=== PATIENT | female | born 1930 | race Caucasian/White ===

== ENCOUNTER 2017-08-06 05:59 | Inpatient (IN) | payer MEDICARE ==
[~2017-08-06] VITALS: Ht 160 cm; Wt 96.2 kg
--- NOTE | 2017-08-06 06:15 | NUR ---
BIB RA FOR SOB VIA GURNEY FROM [facility]. PT ARRIVED WITH O2 @ 4LPM VIA NC IN NO ACUTE DISTRESS. PT TRANSFERRED TO BED, TOLERATED WELL. PT PLACED ON MONITOR WITH V/S WNL. O2 SAT @ 88%. PT RESPIRATIONS EVEN AND UNLABORED. IV PLACED ON RIGHT HAND 20G THAT IS CLEAN DRY INTACT AND PATENT WITH SALINE LOCK. AWAITING MD SHAH. Addendum: 08/06/17 at 0623 by MICHELLE PT ARRIVED ON NON REBREATHER @ 12LPM AND NOT ON A N/C.
[2017-08-06 06:49] LABS: BASOPHILS # (AUTO) 0.1 /CMM (0.0-0.2); BASOPHILS % (AUTO) 0.5 % (0.0-2.0); EOSINOPHILS % (AUTO) 4.1 % (0.0-6.0); HEMATOCRIT 41 % (33-45); HEMOGLOBIN 13.5 g/dL (11.5-14.8); LYMPHOCYTES # (AUTO) 1.8 /CMM (0.8-4.8); LYMPHOCYTES % (AUTO) 11.8 % (20.0-44.0); MEAN CORPUSCULAR HGB CONC 33 g/dl (31.0-36.0); MEAN CORPUSCULAR VOLUME 89 fL (82-100); MONOCYTES # (AUTO) 1.1 /CMM (0.1-1.30); MONOCYTES % (AUTO) 7.2 % (2.0-12.0); NEUTROPHILS # (AUTO) 11.3 /CMM (1.8-8.9); NEUTROPHILS % (AUTO) 76.4 % (43.0-81.0); PLATELET COUNT (AUTO) 416 /CMM (150-450); RDW COEFFICIENT OF VARIATION 15.2 (11.5-15.0); RED BLOOD CELL COUNT(AUTO) 4.61 MIL/uL (4.0-5.2); WHITE BLOOD COUNT (AUTO) 14.8 K/uL (4.3-11.0)
--- NOTE | 2017-08-06 07:00 | NUR ---
XRAY AT BEDSIDE.
[2017-08-06 07:03] LABS: INR 0.98 (0.87-1.13)
[2017-08-06 07:10] LABS: CALCIUM, SERUM 9.2 mg/dL (8.5-10.1); CARBON DIOXIDE 23 mmol/L (21-32); CHLORIDE 107 mmol/L (98-107); CREATININE 1.4 mg/dL (0.6-1.3); GLUCOSE 137 mg/dL (74-106); POTASSIUM 4.1 mmol/L (3.5-5.1); SODIUM SERUM 141 mmol/L (136-145); TROPONIN I 0.649 ng/mL (0.00-0.056); UREA NITROGEN, BLOOD 25 mg/dL (7-18)
--- NOTE | 2017-08-06 07:14 | NUR ---
RECEIVED CRITICAL LAB VALUE TROPONIN 0.164. NOTIFIED MD, AWAITING ORDERS.
[2017-08-06 07:15] LABS: B-TYPE NATRIURETIC PEPTIDE 244 PG/ML (0-125)
[2017-08-06] MEDS ORDERED: ASPIRIN 325 MG TABLET PO ONE (08:00)
[2017-08-06] MEDS ORDERED: DILTIAZEM HCL 25 MG IV IV ONE (08:00)
[2017-08-06] MEDS ORDERED: ASPIRIN 325 MG TABLET ONE (08:01)
[2017-08-06] MEDS ORDERED: DILTIAZEM HCL 50 MG IV ONE (08:02)
[2017-08-06] MEDS ORDERED: TRAZ-182 PO (08:11)
[2017-08-06] MEDS ORDERED: HYDR-548 PO ×2 (08:11)
[2017-08-06] MEDS ORDERED: CITA40TA11 PO (08:11)
[2017-08-06] MEDS ORDERED: FENO160T PO (08:11)
[2017-08-06] MEDS ORDERED: SIMV20TA6 PO (08:11)
[2017-08-06] MEDS ORDERED: ASPI-1152 PO (08:11)
[2017-08-06] MEDS ORDERED: METF-440 PO (08:11)
--- NOTE | 2017-08-06 08:17 | NUR ---
CALLED [facility] FOR ADMISSION
--- NOTE | 2017-08-06 08:41 | NUR ---
ROOM 109
--- NOTE | 2017-08-06 08:52 | NUR ---
REPORT GIVEN TO MARIELA CORRALES FOR TELE 112.
[2017-08-06] MEDS ORDERED: MORPHINE SULFATE INJ 2 MG/ML DISP.SYRIN IV PRN ×3 (09:00→09:15)
[2017-08-06] MEDS ORDERED: NITROGLYCERIN PACKET 1 GM PACKET TD PRN ×2 (09:00→09:15)
[2017-08-06] MEDS ORDERED: DOCUSATE SODIUM 100 MG CAPSULE PO PRN ×2 (09:00→09:15)
[2017-08-06] MEDS ORDERED: ENOXAPARIN SODIUM 60 MG/0.6 ML DISP.SYRIN SQ SCH (09:00)
[2017-08-06] MEDS ORDERED: MAG HYDROX/AL HYDROX/SIMETH 30 ML UDC PO PRN ×2 (09:00→09:15)
[2017-08-06] MEDS ORDERED: NITROGLYCERIN 0.4 MG/TAB BOTTLE SL PRN ×2 (09:00→09:15)
--- NOTE | 2017-08-06 09:35 | NUR ---
RN NOTE RECEIVED REPORT FROM RENUKA BECK. RECEIVED PATIENT 87 YEAR OLD FEMALE BOUGHT IN TO THE HOSPITAL BY AMBULANCE FROM [facility] [employer] [facility]. PATIENT IS AWAKE ALERT AND ORIENTED X3, SHE IS ABLE TO MAKE THINGS KNOWN AND VERBALIZE NEEDS. ON O2 4L VIA NC BREATHING EVEN AND UNLABORED WITH NO DISTRESS NOTED, PATIENT IS SATURATING WELL. PATIENT DENIES ANY PAIN AT THIS TIME. ON ADMINISTRATIVE SERVICES SPECIALIST OF SINUS RHYTHM WITH 1ST DEGREE HR OF 90. WOUND PICTURES TAKEN AND DOCUMENTED IN CHART. BED LOW IN LOCKED POSITION. PLACED CALL LIGHT WITHIN REACH. WILL CONTINUE TO MONITOR CLOSELY.
[2017-08-06 10:13] VITALS: BP 102/72
[2017-08-06] MEDS: ENOXAPARIN SODIUM 30 MG/0.3 ML DISP.SYRIN SQ SCH (10:43)
[2017-08-06] MEDS ORDERED: AMIODARONE HCL 200 MG TABLET PO SCH (11:00)
[2017-08-06 12:03] LABS: ALANINE AMINOTRANSFERASE 21 U/L (12-78); ALBUMIN 3.4 g/dL (3.4-5.0); ALKALINE PHOSPHATASE 29 U/L (46-116); ASPARTATE AMINOTRANSFERASE 26 U/L (15-37); BILIRUBIN,TOTAL 0.3 mg/dL (0.2-1.0); CALCIUM, SERUM 9.5 mg/dL (8.5-10.1); CARBON DIOXIDE 23 mmol/L (21-32); CHLORIDE 108 mmol/L (98-107); CREATININE 1.3 mg/dL (0.6-1.3); GLUCOSE 112 mg/dL (74-106); MAGNESIUM 2.3 mg/dL (1.8-2.4); PHOSPHORUS 4.1 mg/dL (2.5-4.9); POTASSIUM 4.5 mmol/L (3.5-5.1); SODIUM SERUM 140 mmol/L (136-145); TOTAL PROTEIN, SERUM 7.1 g/dL (6.4-8.2); UREA NITROGEN, BLOOD 26 mg/dL (7-18)
[2017-08-06 12:09] LABS: CHOLESTEROL 173 mg/dL (<200); HDL CHOLESTEROL 48 mg/dL (40-60); LDL 105 mg/dL (0-99); THYROID STIMULATING HORMONE 0.431 uIU/mL (0.358-3.74); TRIGLYCERIDES 114 mg/dL (30-150)
[2017-08-06] MEDS: FENOFIBRATE NANOCRYS (145 MG) 145 MG TABLET PO SCH (12:29)
[2017-08-06] MEDS ORDERED: ASPIRIN EC 325 MG TABLET.DR PO ONE ×2 (13:00)
[2017-08-06 14:00] VITALS: BP 110/76
[2017-08-06] MEDS: MORPHINE SULFATE INJ 4 MG/ML DISP.SYRIN IV PRN ×2 (14:02→18:41)
[2017-08-06 16:00] VITALS: BP 131/60
[2017-08-06] MEDS: AMIODARONE HCL 200 MG TABLET PO SCH (16:47)
[2017-08-06 18:03] VITALS: BP 131/60
[2017-08-06] MEDS: METFORMIN 500 MG TABLET PO SCH (18:16)
--- NOTE | 2017-08-06 18:56 | NUR ---
RN NOTE PATIENT REMAINED STABLE THROUGHOUT SHIFT. NO ACUTE CHANGES NOTED DURING SHIFT. WILL ENDORSE TO NEXT SHIFT TO CONTINUE CONTINUITY OF CARE.
--- NOTE | 2017-08-06 19:30 | NUR ---
FILM DRYING MACHINE OPERATOR OPENING NOTES: RECEIVED PT IN BED AND IS LAYING DOWN IN BED AT THIS TIME. PT IS ON 5LPM VIA NC AND IS TOLERATING WELL. PT HAS IV AND IS S/L AT THIS TIME. 2 FAMILY MEMBERS AT BEDSIDE AT THIS TIME. PT IS A/OX3. NO S/S OF DISTRESS NOTED AT THIS TIME. CALL LIGHT WITHIN PT'S REACH. BED KEPT IN LOW, LOCKED POSITION, AND SIDE RAILS X 2UP. WILL CONTINUE TO MONITOR PT.
[2017-08-06 20:00] VITALS: BP 122/78
[2017-08-06] MEDS: IV NS 0.9% 1,000 ML IV PRN (20:27)
[2017-08-06 20:57] VITALS: BP 122/78
[2017-08-06] MEDS: ASPIRIN EC 81 MG TABLET.DR PO SCH (21:23)
[2017-08-06] MEDS: SIMVASTATIN 20 MG TABLET PO SCH (21:23)
[2017-08-06] MEDS: TRAZODONE 50 MG TABLET PO PRN (21:23)
--- NOTE | 2017-08-06 21:29 | NUR ---
SCREENING TECH NOTES: PER SON, TRACEY, TO ADMINISTER TRAZODONE. EXPLAINED TO PT AND SHE SAID THAT IS WHAT [facility] TAK[facility] AT THE [facility]. TRAZODONE 150MG WAS GIVEN PO. WILL CONTINUE TO MONITOR PT.
--- NOTE | 2017-08-06 22:03 | NUR ---
PATIENT SERVICE COORDINATOR NOTES: NOTIFIED AMBULANCE DRIVER PARAMEDIC LUNA WILHELM ABOUT D-DIMER 5.25 ; AMBULANCE DRIVER PARAMEDIC AWARE. NO ORDERS AT THIS TIME; INFORMED HER THAT PT IS NOT IN DISTRESS AT THIS TIME. PT IS ASLEEP AND IS ON NASAL CANNULA. 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 WILL CONTINUE TO MONITOR.
[2017-08-07] VITALS: BP 130/78
[2017-08-07 00:57] VITALS: BP 130/78
--- NOTE | 2017-08-07 01:12 | NUR ---
PUSHER RUNNER NOTES: NOTIFIED ELECTRIC LOCOMOTIVE CRANE OPERATOR LUNA WILHELM ABOUT RECENT TROPONIN RESULTS OF 1.216 ; ELECTRIC LOCOMOTIVE CRANE OPERATOR AWARE. NO NEW ORDERS
--- NOTE | 2017-08-07 01:35 | NUR ---
SPRING INTERNSHIP NOTES: CONSENT FOR CT PULM ANGIOGRAM OBTAINED AND PLACED IN CHART.
[2017-08-07 04:00] VITALS: BP 128/75
--- NOTE | 2017-08-07 06:09 | NUR ---
MANAGER RELATIONSHIP CLOSING NOTES: ALL NEEDS WERE ATTENDED AND ANTICIPATED FOR. PT IS ASLEEP AT THIS TIME. PT IS ON SEMI-FLORES'S POSITION AND RESTING COMFORTABLY. PT IS ON 4LPM VIA NC. PT ON SCD PUMPS WELL. BED ALARM ACTIVATED. CALL LIGHT WITHIN PT'S REACH. BED KEPT IN LOW, LOCKED POSITION, AND SIDE RAILS X 2UP. PT HAS IV ON R HAND AND IS BEING INFUSED WITH NS AT 50ML/HR. PT ON TELE BOX AND READING SHOWS SR WITH FIRST DEGREE AV BLOCK. WILL ENDORSE TO AM NURSE FOR DAMON.
[2017-08-07 06:51] LABS: BASOPHILS # (AUTO) 0.1 /CMM (0.0-0.2); BASOPHILS % (AUTO) 0.4 % (0.0-2.0); HEMATOCRIT 37 % (33-45); HEMOGLOBIN 12.5 g/dL (11.5-14.8); LYMPHOCYTES # (AUTO) 1.6 /CMM (0.8-4.8); LYMPHOCYTES % (AUTO) 11.5 % (20.0-44.0); MEAN CORPUSCULAR HGB CONC 33 g/dl (31.0-36.0); MEAN CORPUSCULAR VOLUME 89 fL (82-100); MONOCYTES # (AUTO) 1.1 /CMM (0.1-1.30); NEUTROPHILS # (AUTO) 10.8 /CMM (1.8-8.9); NEUTROPHILS % (AUTO) 78.1 % (43.0-81.0); PLATELET COUNT (AUTO) 357 /CMM (150-450); RDW COEFFICIENT OF VARIATION 15.1 (11.5-15.0); RED BLOOD CELL COUNT(AUTO) 4.21 MIL/uL (4.0-5.2); WHITE BLOOD COUNT (AUTO) 13.8 K/uL (4.3-11.0)
[2017-08-07 07:18] LABS: ALANINE AMINOTRANSFERASE 22 U/L (12-78); ALKALINE PHOSPHATASE 26 U/L (46-116); ASPARTATE AMINOTRANSFERASE 22 U/L (15-37); BILIRUBIN,TOTAL 0.4 mg/dL (0.2-1.0); CALCIUM, SERUM 8.9 mg/dL (8.5-10.1); CARBON DIOXIDE 23 mmol/L (21-32); CHLORIDE 107 mmol/L (98-107); GLUCOSE 124 mg/dL (74-106); MAGNESIUM 2.1 mg/dL (1.8-2.4); PHOSPHORUS 4.8 mg/dL (2.5-4.9); POTASSIUM 4.7 mmol/L (3.5-5.1); SODIUM SERUM 141 mmol/L (136-145); TOTAL PROTEIN, SERUM 6.5 g/dL (6.4-8.2); UREA NITROGEN, BLOOD 36 mg/dL (7-18)
[2017-08-07 07:30] LABS: TROPONIN I 0.758 ng/mL (0.00-0.056)
--- NOTE | 2017-08-07 07:36 | NUR ---
RN NOTES RECEIVED PT A&0X2-3, ON 4L NC SATING WELL NO SOB OR DISTRESS NOTED. SR WITH 1ST DEGREE ON THE TELE ALLEN HR 67. RFA 22G IV SITE INTACT WITH IVF AT 50ML/HR. BED LOCKED AND IN LOWEST POSITION, CALL LIGHT WITHIN REACH, SIDE RAILS UPX3, WILL CONT TO ALLEN.
[2017-08-07 08:00] VITALS: BP 114/60
[2017-08-07] MEDS: FENOFIBRATE NANOCRYS (145 MG) 145 MG TABLET PO SCH (08:28)
[2017-08-07] MEDS: AMIODARONE HCL 200 MG TABLET PO SCH ×3 (08:28→17:13)
[2017-08-07] MEDS: CITALOPRAM HYDROBROMIDE 20 MG TABLET PO SCH (08:28)
--- NOTE | 2017-08-07 08:28 | NUR ---
SPOKE WITH RN. PATIENT NEEDS A BIGGER GAUGE IV FOR CT PULMONARY ANGIOGRAM, ONLY HAS A 22G. RN WILL CALL BACK WHEN READY.
[2017-08-07] MEDS: ENOXAPARIN SODIUM 30 MG/0.3 ML DISP.SYRIN SQ SCH (08:29)
[2017-08-07] MEDS: HYDROCODONE/APAP 10/325MG 1 EA TABLET PO SCH (08:32)
--- NOTE | 2017-08-07 09:00 | NUR ---
RN NOTES ATTEMPTED TO TITRATE O2 PER MD ORDER, PT SAT 86%, PLACED BACK ON O2.
--- NOTE | 2017-08-07 10:00 | NUR ---
RN NOTES PER RADIOLOGY PT NEEDS AC 20G IV FOR CT PULM, PT HAS 22G IV. ATTEMPTED TO INSERT 20G WITH CHARGE NURSE AND VEIN FINDER. PT HAS POOR VEINS, UNABLE TO START IV. NURSING SUP NOTIFIED FOR MIDLINE PLACEMENT.
[2017-08-07] MEDS ORDERED: IOHEXOL-350 100 ML VIAL IV ONE (13:47)
[2017-08-07] MEDS ORDERED: CT SWABBABLE VALVE TRANS SET 1 EA INFUS.SET MC ONE (13:48)
[2017-08-07] MEDS ORDERED: IV NS 0.9% 500 ML IV ONE (13:48)
[2017-08-07] MEDS: MORPHINE SULFATE INJ 4 MG/ML DISP.SYRIN IV PRN (15:46)
[2017-08-07 16:00] VITALS: BP 108/66
--- NOTE | 2017-08-07 16:14 | NUR ---
Patient resides at [facility] [phone],requires assistance with adl's. Ambulates with a walker, has no homehealth provider.Spoke with Denise segura at [facility] , will fax copy of AARTI to [facility] mgt dept. Addendum: 08/07/17 at 1615 by MIKEL DANIELS RN Amended: Links added.
[2017-08-07] MEDS ORDERED: RIVAROXABAN 15 MG TABLET PO SCH (17:00)
[2017-08-07] MEDS: METFORMIN 500 MG TABLET PO SCH (17:13)
--- NOTE | 2017-08-07 17:14 | NUR ---
RN NOTES PT METFORMIN HELD DUE TO CONTRAST GIVEN TODAY.
[2017-08-07 19:24] LABS: APPEARANCE,URINE SL CLOUDY (CLEAR); BILIRUBIN,URINE NEGATIVE (NEGATIVE); BLOOD, URINE NEGATIVE Ery/uL (NEGATIVE); COLOR,URINE YELLOW (YELLOW); KETONES,URINE TRACE (NEGATIVE); LEUKOCYTE ESTERASE ,URINE 1+ (NEGATIVE); NITRITE, URINE NEGATIVE (NEGATIVE); PROTEIN,URINE TRACE mg/dl (NEGATIVE); UGLUCOSE NEGATIVE (NEGATIVE); UROBILINOGEN,URINE 0.2 EU/dL (0.2)
--- NOTE | 2017-08-07 19:30 | NUR ---
PLASTIC TILE SETTER OPENING NOTES RECEIVED PT SITTING UPRIGHT IN BED. FAMILY AT BEDSIDE. PT IS AWAKE AND RESPONSIVE, AFEBRILE. RESPIRATIONS ARE EVEN AND UNLABORED, TOLERATING O2 @4L/MIN SAT 96% VIA NC. DENIES ANY PAIN, SOB, N/V AT THIS TIME. IV SITE INTACT, NO INFILTRATION NOTED. DRESSING KEPT CLEAN AND DRY. SAFETY MEASURES ARE IN PLACE. CALL LIGHT IS LEFT WITHIN REACH. WILL CONTINUE TO MONITOR THROUGHOUT SHIFT.
[2017-08-07 19:36] LABS: BACTERIA,URINE Many /HPF (None Seen); RBC,URINE NONE SEEN /HPF (0-2); SQUAMOUS EPITHELIAL CELL,UR Many /HPF (None Seen); WBC,URINE 21-50 /HPF (0-3)
[2017-08-07 20:00] VITALS: BP 144/83
[2017-08-07] MEDS: SIMVASTATIN 20 MG TABLET PO SCH (21:09)
[2017-08-07] MEDS: ASPIRIN EC 81 MG TABLET.DR PO SCH (21:09)
[2017-08-08] VITALS (8 sets, daily range): BP systolic 126–152; BP diastolic 62–83
--- NOTE | 2017-08-08 00:30 | NUR ---
GRINDER OPERATOR NOTES PT REFUSED VITAL SIGNS. PT IS NOT IN ANY APPARENT DISTRESS AT THIS TIME. NO C/O SOB, TOLERATING O2 @3L/MIN VIA NC. DENIES ANY PAIN. WILL CONTINUE TO MONITOR THROUGHOUT SHIFT.
[2017-08-08] MEDS: IV NS 0.9% 1,000 ML IV PRN ×2 (02:47→23:07)
--- NOTE | 2017-08-08 06:32 | NUR ---
ELEMENTARY INSTRUCTIONAL COACH CLOSING NOTES ALL DUE MEDS GIVEN, NEEDS MET AND RENDERED. AWAKE AND RESPONSIVE. AFEBRILE, RESPIRATIONS ARE EVEN AND UNLABORED, NOT IN ANY ACUTE DISTRESS NOTED. DENIES ANY CHEST PAIN, N/V. IV SITE INTACT, FLUIDS RUNNING AND TOLERATING WELL. NO INFILTRATION NOTED. SAFETY MEASURES ARE IN PLACE. REMINDED PT TO USE CALL LIGHT WHEN ASSISTANCE IS NEEDED, CALL LIGHT IS LEFT WITHIN REACH. WILL ENDORSE TO NEXT SHIFT FOR CONTINUITY OF CARE.
[2017-08-08 07:02] LABS: BASOPHILS % (AUTO) 0.3 % (0.0-2.0); HEMATOCRIT 36 % (33-45); HEMOGLOBIN 12.1 g/dL (11.5-14.8); LYMPHOCYTES # (AUTO) 1.5 /CMM (0.8-4.8); LYMPHOCYTES % (AUTO) 10.8 % (20.0-44.0); MEAN CORPUSCULAR HGB CONC 33 g/dl (31.0-36.0); MEAN CORPUSCULAR VOLUME 89 fL (82-100); MONOCYTES # (AUTO) 1.1 /CMM (0.1-1.30); NEUTROPHILS # (AUTO) 10.8 /CMM (1.8-8.9); NEUTROPHILS % (AUTO) 76.9 % (43.0-81.0); PLATELET COUNT (AUTO) 355 /CMM (150-450); RDW COEFFICIENT OF VARIATION 15.3 (11.5-15.0); RED BLOOD CELL COUNT(AUTO) 4.12 MIL/uL (4.0-5.2); WHITE BLOOD COUNT (AUTO) 14.1 K/uL (4.3-11.0)
[2017-08-08 07:20] LABS: ALANINE AMINOTRANSFERASE 19 U/L (12-78); ALKALINE PHOSPHATASE 27 U/L (46-116); ASPARTATE AMINOTRANSFERASE 22 U/L (15-37); BILIRUBIN,TOTAL 0.4 mg/dL (0.2-1.0); CALCIUM, SERUM 8.9 mg/dL (8.5-10.1); CARBON DIOXIDE 26 mmol/L (21-32); CHLORIDE 107 mmol/L (98-107); CREATININE 1.6 mg/dL (0.6-1.3); GLUCOSE 118 mg/dL (74-106); MAGNESIUM 2.3 mg/dL (1.8-2.4); PHOSPHORUS 4.2 mg/dL (2.5-4.9); SODIUM SERUM 140 mmol/L (136-145); TOTAL PROTEIN, SERUM 6.7 g/dL (6.4-8.2); UREA NITROGEN, BLOOD 32 mg/dL (7-18)
--- NOTE | 2017-08-08 07:35 | NUR ---
RN NOTES PT RECEIVED IN BED. Angelica CALVO/REYNALDO3 . TELE SR 80. IV 20G JESSIE INTACT GOOD BLOOD RETURN, NEGATIVE SIGNS OF INFECTION/ INFILTRATION. O2 NC 3LPM. NEGATIVE SIGNS OF SOB. NEGATIVE ACCESSORY MUSCLE USE/ NASAL FLARING. WILL CONTINUE TO MONITOR. BED LOCKED AND LOWEST POSITION. CALL LIGHT WITHIN REACH.
[2017-08-08] MEDS: HYDROCODONE/APAP 10/325MG 1 EA TABLET PO SCH (09:57)
[2017-08-08] MEDS: CITALOPRAM HYDROBROMIDE 20 MG TABLET PO SCH (09:58)
[2017-08-08] MEDS: FENOFIBRATE NANOCRYS (145 MG) 145 MG TABLET PO SCH (09:58)
[2017-08-08] MEDS: AMIODARONE HCL 200 MG TABLET PO SCH ×3 (09:59→19:39)
--- NOTE | 2017-08-08 19:07 | NUR ---
RN NOTES PT STABLE CONDITION. PLEASANT, A/OX3 . IV 20G JESSIE INTACT GOOD BLOOD RETURN, NEGATIVE SIGNS OF INFECTION/ INFILTRATION. O2 NC 3LPM. NEGATIVE SIGNS OF SOB. NEGATIVE ACCESSORY MUSCLE USE/ NASAL FLARING AT REST. SOB WITH EXERTION AND TRANSFERRING TO COMMODE. WILL CONTINUE TO MONITOR. BED LOCKED AND LOWEST POSITION. CALL LIGHT WITHIN REACH. WILL ENDORSE TO ONCOMING NURSE
[2017-08-08] MEDS: METFORMIN 500 MG TABLET PO SCH (19:38)
[2017-08-08] MEDS: RIVAROXABAN 15 MG TABLET PO SCH (19:38)
[2017-08-08] MEDS ORDERED: CEFTRIAXONE 1 G VIAL ONE (19:40)
[2017-08-08] MEDS: CEFTRIAXONE 1 G in IV NS 0.9% 50 ML IV SCH (20:15)
--- NOTE | 2017-08-08 20:53 | NUR ---
RECIEVED ALERT AND ORIENTATED SPEECH CLEAR VERBALIZED SHE IE GOING HOME TOMORROW AND SHE WANTS NO MORE PILSS TONIGHT. INFORMED HER SHE HAS ZOCOR ORDERED FOR TONIGHT AND SHE ADAMANTILY REFUSES ANY MORE PILLS TONIGHT
[2017-08-08] MEDS: SIMVASTATIN 20 MG TABLET PO SCH (21:56)
[2017-08-09 04:00] VITALS: BP 132/66
[2017-08-09 04:46] VITALS: BP 132/66
--- NOTE | 2017-08-09 05:31 | NUR ---
CLOSING NOTES: O2 3 LITERS AND SATS 96%. SLEPT 10 HOURS OF THE 12 HOUR SHIFT. hob UP FOR EASIER BREATHING. NEEDING ASSIST TO GET OOB AND INTO BED D/T BECOMING sob WITH ACTIVITY. WHEN LYING STILL NO SOB
[2017-08-09 05:52] LABS: BASOPHILS # (AUTO) 0.1 /CMM (0.0-0.2); BASOPHILS % (AUTO) 0.6 % (0.0-2.0); EOSINOPHILS % (AUTO) 6.1 % (0.0-6.0); HEMATOCRIT 35 % (33-45); HEMOGLOBIN 11.5 g/dL (11.5-14.8); LYMPHOCYTES # (AUTO) 1.6 /CMM (0.8-4.8); LYMPHOCYTES % (AUTO) 13.6 % (20.0-44.0); MEAN CORPUSCULAR HGB CONC 33 g/dl (31.0-36.0); MEAN CORPUSCULAR VOLUME 89 fL (82-100); MONOCYTES # (AUTO) 1.3 /CMM (0.1-1.30); MONOCYTES % (AUTO) 11.1 % (2.0-12.0); NEUTROPHILS # (AUTO) 7.8 /CMM (1.8-8.9); NEUTROPHILS % (AUTO) 68.6 % (43.0-81.0); PLATELET COUNT (AUTO) 278 /CMM (150-450); RDW COEFFICIENT OF VARIATION 15.1 (11.5-15.0); WHITE BLOOD COUNT (AUTO) 11.4 K/uL (4.3-11.0)
[2017-08-09 06:17] LABS: ALANINE AMINOTRANSFERASE 17 U/L (12-78); ALBUMIN 2.8 g/dL (3.4-5.0); ALKALINE PHOSPHATASE 23 U/L (46-116); ASPARTATE AMINOTRANSFERASE 30 U/L (15-37); BILIRUBIN,TOTAL 0.4 mg/dL (0.2-1.0); CALCIUM, SERUM 8.6 mg/dL (8.5-10.1); CARBON DIOXIDE 25 mmol/L (21-32); CHLORIDE 108 mmol/L (98-107); CREATININE 1.5 mg/dL (0.6-1.3); GLUCOSE 104 mg/dL (74-106); MAGNESIUM 2.3 mg/dL (1.8-2.4); PHOSPHORUS 3.7 mg/dL (2.5-4.9); POTASSIUM 4.7 mmol/L (3.5-5.1); SODIUM SERUM 141 mmol/L (136-145); TOTAL PROTEIN, SERUM 6.5 g/dL (6.4-8.2); UREA NITROGEN, BLOOD 28 mg/dL (7-18)
[2017-08-09 08:00] VITALS: BP_SYST 120; BP_SYST 122; BP_DIAS 67; BP_DIAS 94
[2017-08-09] MEDS: FENOFIBRATE NANOCRYS (145 MG) 145 MG TABLET PO SCH (09:50)
[2017-08-09] MEDS: HYDROCODONE/APAP 10/325MG 1 EA TABLET PO SCH (09:50)
[2017-08-09] MEDS: CHOLECALCIFEROL 1,000 UNIT TABLET (VIT D3) PO SCH (09:51)
[2017-08-09] MEDS: CITALOPRAM HYDROBROMIDE 20 MG TABLET PO SCH (09:51)
[2017-08-09] MEDS: AMIODARONE HCL 200 MG TABLET PO SCH ×3 (09:51→18:32)
[2017-08-09 12:00] VITALS: BP_SYST 118; BP_SYST 126; BP_DIAS 67; BP_DIAS 77
[2017-08-09] MEDS: CEFTRIAXONE 1 G in IV NS 0.9% 50 ML IV SCH (13:41)
[2017-08-09 16:00] VITALS: BP_SYST 124; BP_SYST 125; BP_DIAS 67; BP_DIAS 75
[2017-08-09] MEDS: METFORMIN 500 MG TABLET PO SCH (18:32)
[2017-08-09] MEDS: RIVAROXABAN 15 MG TABLET PO SCH (18:35)
--- NOTE | 2017-08-09 19:33 | NUR ---
RN NOTE RECEIVED CALL FROM CHOCO CARRASCO NP, PATIENT HAS SOB AFTER USING BED SIDE COMODE, CALLED LUNA SEYMOUR, ORDER TO STOP IV FLUIDS GIVEN AND CARRIED OUT
[2017-08-09 20:00] VITALS: BP 127/75
[2017-08-09] MEDS ORDERED: IPRATROPIUM NEB FS 0.5 MG/2.5 ML AMPUL.NEB NEB PRN (21:00)
[2017-08-09] MEDS ORDERED: ALBUTEROL FS 2.5 MG/3 ML VIAL.NEB NEB PRN (21:00)
[2017-08-09] MEDS: SIMVASTATIN 20 MG TABLET PO SCH (21:16)
[2017-08-09] MEDS: HYDROCODONE/APAP 10/325MG 1 EA TABLET PO PRN (21:16)
[2017-08-09] MEDS ORDERED: ZOLPIDEM TARTRATE 5 MG TABLET PO PRN (23:00)
[2017-08-10 04:00] VITALS: BP 149/78
--- NOTE | 2017-08-10 04:00 | NUR ---
RN NOTE PATIENT IS ALERT/ORIENTED X 3, REFUSED 4AM VITAL SIGNS, EXPLAINED ALL RISKS AND BENEFITS, STILL REFUSED Addendum: 08/10/17 at 0438 by COREY SALEH RN CHARTED FOR WRONG PATIENT, PLS DISREGARD
--- NOTE | 2017-08-10 07:20 | NUR ---
RN OPENING NOTES. PT A&0X3, PT REPORTS VERY POOR NIGHTS SLEEP AND REQUESTING MORE REST. PT LUNGS AUSCULTATED WITH BI LAT CRACKLES. SAO2 WNL. PT DENIES PAIN. PT WITH R UA MIDLINE INTACT AND SALINE FLUSH PATENT, IVC AT R WRIST INTACT AND SALINE FLUSH PATENT. PT ARUN IN LOWEST LOCKED POSITION WITH HNADRQAILSX2 AND CALL JOHNSON WITHIN REACH. PT BRIEFED ON TODAY'S POC AND IS WITHOUT CONCERN OR COMPLAINT.
[2017-08-10 07:45] LABS: ALANINE AMINOTRANSFERASE 14 U/L (12-78); ALBUMIN 2.9 g/dL (3.4-5.0); ALKALINE PHOSPHATASE 24 U/L (46-116); ASPARTATE AMINOTRANSFERASE 18 U/L (15-37); BILIRUBIN,TOTAL 0.2 mg/dL (0.2-1.0); CALCIUM, SERUM 8.9 mg/dL (8.5-10.1); CARBON DIOXIDE 24 mmol/L (21-32); CHLORIDE 108 mmol/L (98-107); CREATININE 1.5 mg/dL (0.6-1.3); GLUCOSE 101 mg/dL (74-106); MAGNESIUM 2.1 mg/dL (1.8-2.4); PHOSPHORUS 3.4 mg/dL (2.5-4.9); POTASSIUM 4.3 mmol/L (3.5-5.1); SODIUM SERUM 142 mmol/L (136-145); TOTAL PROTEIN, SERUM 6.5 g/dL (6.4-8.2); UREA NITROGEN, BLOOD 26 mg/dL (7-18)
[2017-08-10 08:00] VITALS: BP_SYST 128; BP_SYST 178; BP_DIAS 89
--- NOTE | 2017-08-10 08:14 | NUR ---
PT WITH BRIEF EPISODE OF SOB- SAO2 88, PT WITHOUT O2 SUPPORT. PT RETURNED TO O2 VIA NC AT 3LPM, REPOSTIONED WITH HOB ELEVATED, PT SA02 RETURNED TO 94%.
[2017-08-10] MEDS: CITALOPRAM HYDROBROMIDE 20 MG TABLET PO SCH (09:25)
[2017-08-10] MEDS: FENOFIBRATE NANOCRYS (145 MG) 145 MG TABLET PO SCH (09:25)
[2017-08-10] MEDS: AMIODARONE HCL 200 MG TABLET PO SCH ×3 (09:25→16:35)
[2017-08-10] MEDS: HYDROCODONE/APAP 10/325MG 1 EA TABLET PO SCH (09:26)
[2017-08-10] MEDS: CHOLECALCIFEROL 1,000 UNIT TABLET (VIT D3) PO SCH (09:26)
[2017-08-10 12:34] VITALS: BP 142/86
[2017-08-10] MEDS: CEFTRIAXONE 1 G in IV NS 0.9% 50 ML IV SCH (13:53)
[2017-08-10 16:00] VITALS: BP 146/90
[2017-08-10] MEDS: RIVAROXABAN 15 MG TABLET PO SCH (16:33)
[2017-08-10] MEDS: METFORMIN 500 MG TABLET PO SCH (17:18)
--- NOTE | 2017-08-10 18:09 | NUR ---
RN CLOSING NOTES. PT A&0X3, SON AT BEDSIDE.PT WITH INTERMITTENT PERIODS OF CONFUSION NOTES DURING SHIFT, RESPONSIVE TO REORIENTATION. PT WITH O2 VIA NC AT 3LPM AND IS WITHOUT RESP DISTRESS. PT DENIES PAIN. PT WITH R UA MIDLINE INTACT AND SL, IVC AT R WRIST INTACT AND SL. PT BED IN LOWEST LOCKED POSITION WITH HNADRAILSX2 AND CALL JOHNSON WITHIN REACH. PT ASSISTED WITH REPOSITIONING Q2HR OR MORE. ALL DAY NURSE DUTIES COMPLETED AND PT AND SON ARE WITHOUT CONCERN OR COMPLAINT AT THIS TIME. WILL ENDORSE TO NIGHT NURSE AT BEDSIDE FOR DAMON.
[2017-08-10 20:00] VITALS: BP 149/85
[2017-08-10] MEDS: TRAZODONE 50 MG TABLET PO PRN (21:07)
[2017-08-10] MEDS: SIMVASTATIN 20 MG TABLET PO SCH (21:07)
[2017-08-11 04:00] VITALS: BP 114/75
--- NOTE | 2017-08-11 07:50 | NUR ---
RN NOTE RECEIVED PATIENT ASLEEP IN BED. ALERT AND ORIENTED X3. SHE IS ABLE TO MAKE THINGS KNOWN AND VERBALIZE NEEDS. ON O2 3L VIA NC BREATHING EVEN AND UNLABORED WITH NO DISTRESS NOTED, PATIENT IS SATURATING WELL. PATIENT DENIES ANY PAIN AT THIS TIME. BED LOW AND LOCKED POSITION. PLACED CALL LIGHT WITHIN REACH. WILL CONTINUE TO MONITOR
[2017-08-11 08:00] VITALS: BP 163/90
[2017-08-11] MEDS: FENOFIBRATE NANOCRYS (145 MG) 145 MG TABLET PO SCH (09:25)
[2017-08-11] MEDS: CHOLECALCIFEROL 1,000 UNIT TABLET (VIT D3) PO SCH (09:25)
[2017-08-11] MEDS: AMIODARONE HCL 200 MG TABLET PO SCH ×3 (09:26→17:08)
[2017-08-11] MEDS: CITALOPRAM HYDROBROMIDE 20 MG TABLET PO SCH (09:26)
[2017-08-11] MEDS: HYDROCODONE/APAP 10/325MG 1 EA TABLET PO SCH (09:26)
--- NOTE | 2017-08-11 10:46 | NUR ---
ROOM AIR SAT 86% CM WILL ARRANGE HOME 02.
[2017-08-11 12:36] LABS: ABG OXYGEN SATURATION 88.4 % (92.0-98.5); ABG PCO2 32.2 mmHg (35.0-45.0); ABG PH 7.455 (7.350-7.450); ABG PO2 52.8 mmHg (75.0-100.0); AaDO2 58.4 mmHg; COHb 0.3 % (0.5-1.5); MetHb 0.3 % (0.0-1.5); O2Hb 87.9 % (94.0-97.0); SITE, ABG Right Radial; VENT MODE, BG ROOM AIR
[2017-08-11] MEDS: CEFTRIAXONE 1 G in IV NS 0.9% 50 ML IV SCH (14:40)
[2017-08-11 16:00] VITALS: BP 114/64
[2017-08-11] MEDS: METFORMIN 500 MG TABLET PO SCH (17:07)
[2017-08-11] MEDS: RIVAROXABAN 15 MG TABLET PO SCH (17:08)
--- NOTE | 2017-08-11 19:27 | NUR ---
RN NOTE PATIENT REMAINED STABLE THROUGHOUT SHIFT. NO ACUTE DISTRESSED NOTED. NPO MIDNIGHT TONIGHT FOR US OF THE ABDOMEN, WILL ENDORSE TO NEXT SHIFT TO CONTINUE CONTINUITY OF CARE.
--- NOTE | 2017-08-11 19:30 | NUR ---
RN MS NOTES, RECEIVED PATIENT IN BED ALERT AND ORIENTED, ABLE TO VERBALIZED NEEDS AND CONCERNS, BREATHING EVEN AND UNLABORED, NO S/S OF SOB/ACUTE DISTRESS NOTED AT THI TIME, AT 4LPM VIA NC O2 SAT @93% AT THIS TIME, SON AT BEDSIDE, JESSIE MIDLINE INTACT AND PATENT, DRY AND CLEAN AT THIS TIME, BED LOCKED AN IN LOWEST POSITION, CALL LIGHT W/I REACH, WILL BE NPO AFTER MIDNIGHT FOR TEST IN THE MORNING, EDUCATION PROVIDED AND PT VERBALIZED UNDERSTANDING.
[2017-08-11] MEDS: HYDROCODONE/APAP 10/325MG 1 EA TABLET PO PRN (19:57)
[2017-08-11 20:00] VITALS: BP 109/64
[2017-08-11] MEDS: SIMVASTATIN 20 MG TABLET PO SCH (21:34)
[2017-08-11] MEDS: TRAZODONE 50 MG TABLET PO PRN (21:34)
[2017-08-12 04:00] VITALS: BP 121/66
--- NOTE | 2017-08-12 06:37 | NUR ---
RN MS NOTES, PATIENT SLEEPING AT THSI TIME, BREATHING EVEN AND UNLABORED, NO S/S OF SOB/ACUTE DISTRESS NOTED AT THI TIME, AT 4LPM VIA NC O2 SAT @94% AT THIS TIME, JESSIE MIDLINE INTACT AND PATENT, DRY AND CLEAN AT THIS TIME, BED LOCKED AN IN LOWEST POSITION, CALL LIGHT W/I REACH, NPO SINCE MIDNIGHT FOR TEST IN THIS MORNING, NO SIGNIFICANT CHANGE OF CONDITION THROUGHOUT THE SHIFT, BED LOCKED AND IN LOWEST POSITION, CALL LIGHT W/I REACH, WILL ENDORSE CONTINUITY OF CARE TO ONCOMING NURSE.
--- NOTE | 2017-08-12 07:35 | NUR ---
RN NOTE RECEIVED PATIENT ASLEEP IN BED. ALERT AND ORIENTED X3. SHE IS ABLE TO MAKE THINGS KNOWN AND VERBALIZE NEEDS. ON O2 4L VIA NC BREATHING EVEN AND UNLABORED WITH NO DISTRESS NOTED, PATIENT IS SATURATING WELL. PATIENT DENIES ANY PAIN AT THIS TIME. PATIENT IS CURRENTLY NPO FOR ULTRASOUND THAT WILL BE DONE THIS MORNING. BED LOW AND LOCKED POSITION. PLACED CALL LIGHT WITHIN REACH. WILL CONTINUE TO MONITOR
[2017-08-12 08:00] VITALS: BP 120/72
[2017-08-12] MEDS: CITALOPRAM HYDROBROMIDE 20 MG TABLET PO SCH (09:40)
[2017-08-12] MEDS: HYDROCODONE/APAP 10/325MG 1 EA TABLET PO SCH (09:40)
[2017-08-12] MEDS: FENOFIBRATE NANOCRYS (145 MG) 145 MG TABLET PO SCH (09:40)
[2017-08-12] MEDS: AMIODARONE HCL 200 MG TABLET PO SCH ×3 (09:41→16:21)
[2017-08-12] MEDS: CHOLECALCIFEROL 1,000 UNIT TABLET (VIT D3) PO SCH (09:41)
[2017-08-12 12:00] VITALS: BP 110/64
[2017-08-12 12:02] LABS: BASOPHILS # (AUTO) 0.2 /CMM (0.0-0.2); EOSINOPHILS % (AUTO) 5.4 % (0.0-6.0); HEMATOCRIT 35 % (33-45); HEMOGLOBIN 11.8 g/dL (11.5-14.8); LYMPHOCYTES # (AUTO) 1.5 /CMM (0.8-4.8); LYMPHOCYTES % (AUTO) 13.6 % (20.0-44.0); MEAN CORPUSCULAR HGB CONC 33 g/dl (31.0-36.0); MEAN CORPUSCULAR VOLUME 89 fL (82-100); MONOCYTES # (AUTO) 1.2 /CMM (0.1-1.30); MONOCYTES % (AUTO) 10.3 % (2.0-12.0); NEUTROPHILS # (AUTO) 7.8 /CMM (1.8-8.9); NEUTROPHILS % (AUTO) 68.7 % (43.0-81.0); PLATELET COUNT (AUTO) 353 /CMM (150-450); RDW COEFFICIENT OF VARIATION 15.2 (11.5-15.0); RED BLOOD CELL COUNT(AUTO) 3.99 MIL/uL (4.0-5.2); WHITE BLOOD COUNT (AUTO) 11.3 K/uL (4.3-11.0)
[2017-08-12 12:45] LABS: CARBON DIOXIDE 27 mmol/L (21-32); CHLORIDE 106 mmol/L (98-107); CREATININE 1.9 mg/dL (0.6-1.3); GLUCOSE 101 mg/dL (74-106); POTASSIUM 4.3 mmol/L (3.5-5.1); SODIUM SERUM 142 mmol/L (136-145); UREA NITROGEN, BLOOD 28 mg/dL (7-18)
[2017-08-12] MEDS: CEFTRIAXONE 1 G in IV NS 0.9% 50 ML IV SCH (13:19)
[2017-08-12 16:02] VITALS: BP 134/70
[2017-08-12] MEDS: RIVAROXABAN 15 MG TABLET PO SCH (16:20)
[2017-08-12] MEDS: METFORMIN 500 MG TABLET PO SCH (17:29)
--- NOTE | 2017-08-12 19:44 | NUR ---
RN NOTE RECEIVED NEW ORDER TO START NS 0.9% 100ML/HR PER DR GRAHAM. CARRIED OUT AND NOTED.
[2017-08-12 20:00] VITALS: BP 122/68
[2017-08-12] MEDS ORDERED: IV NS 0.9% 1,000 ML BAG IV PRN (20:00)
[2017-08-12] MEDS: IV NS 0.9% 1,000 ML IV PRN (20:08)
[2017-08-12] MEDS: SIMVASTATIN 20 MG TABLET PO SCH (21:45)
[2017-08-12] MEDS: TRAZODONE 50 MG TABLET PO PRN (21:45)
[2017-08-13 04:00] VITALS: BP 137/78
[2017-08-13] MEDS: IV NS 0.9% 1,000 ML IV PRN (06:25)
[2017-08-13 06:49] LABS: BASOPHILS # (AUTO) 0.1 /CMM (0.0-0.2); BASOPHILS % (AUTO) 0.6 % (0.0-2.0); EOSINOPHILS % (AUTO) 5.3 % (0.0-6.0); HEMATOCRIT 33 % (33-45); HEMOGLOBIN 11.3 g/dL (11.5-14.8); LYMPHOCYTES # (AUTO) 1.7 /CMM (0.8-4.8); LYMPHOCYTES % (AUTO) 15.2 % (20.0-44.0); MEAN CORPUSCULAR HGB CONC 34 g/dl (31.0-36.0); MEAN CORPUSCULAR VOLUME 89 fL (82-100); MONOCYTES # (AUTO) 1.1 /CMM (0.1-1.30); NEUTROPHILS # (AUTO) 7.8 /CMM (1.8-8.9); NEUTROPHILS % (AUTO) 68.9 % (43.0-81.0); PLATELET COUNT (AUTO) 337 /CMM (150-450); RDW COEFFICIENT OF VARIATION 14.8 (11.5-15.0); RED BLOOD CELL COUNT(AUTO) 3.74 MIL/uL (4.0-5.2); WHITE BLOOD COUNT (AUTO) 11.3 K/uL (4.3-11.0)
[2017-08-13 07:17] LABS: CALCIUM, SERUM 8.6 mg/dL (8.5-10.1); CARBON DIOXIDE 26 mmol/L (21-32); CHLORIDE 107 mmol/L (98-107); CREATININE 1.6 mg/dL (0.6-1.3); GLUCOSE 95 mg/dL (74-106); MAGNESIUM 2.1 mg/dL (1.8-2.4); PHOSPHORUS 3.7 mg/dL (2.5-4.9); POTASSIUM 4.6 mmol/L (3.5-5.1); SODIUM SERUM 141 mmol/L (136-145); UREA NITROGEN, BLOOD 27 mg/dL (7-18)
--- NOTE | 2017-08-13 07:20 | NUR ---
MS RN NOTE: RECEIVED PATIENT IN BED, AWAKE, ALERT AND ABLE TO MAKE HER NEEDS KNOWN. ON O2 4L/MIN VIA NC AND SATURATING 95%. HOB ELEVATED. NO SHORTNESS OF BREATH NOTED. DENIED PAIN. (R) UA MIDLINE NOTED INTACT AND PATENT INFUSING NS @100ML/HR. BED IN LOWEST POSITION. BED ALARMED AND LOCKED AT ALL TIMES. CALL LIGHT WITHIN REACH.
[2017-08-13 08:00] VITALS: BP 130/73
[2017-08-13 08:14] LABS: IMMUNOGLOBULIN A, SERUM 248 mg/dL (64-422); IMMUNOGLOBULIN G, SERUM 917 mg/dL (700-1600); IMMUNOGLOBULIN M, SERUM 90 mg/dL (26-217)
[2017-08-13] MEDS: CITALOPRAM HYDROBROMIDE 20 MG TABLET PO SCH (09:20)
[2017-08-13] MEDS: AMIODARONE HCL 200 MG TABLET PO SCH ×2 (09:20→13:00)
[2017-08-13] MEDS: FENOFIBRATE NANOCRYS (145 MG) 145 MG TABLET PO SCH (09:20)
[2017-08-13] MEDS: CHOLECALCIFEROL 1,000 UNIT TABLET (VIT D3) PO SCH (09:24)
[2017-08-13] MEDS: HYDROCODONE/APAP 10/325MG 1 EA TABLET PO SCH (09:24)
[2017-08-13] MEDS ORDERED: Rivaroxaban PO (10:14)
[2017-08-13] MEDS ORDERED: AMIO400T5 PO (10:14)
[2017-08-13] MEDS ORDERED: GLIP5TAB13 PO (10:16)
--- NOTE | 2017-08-13 11:31 | NUR ---
MS RN NOTE: THE DAUGHTER WAS REQUESTING FOR A CD COPY OF THE RENAL ULTRASOUND. DR. GRAHAM WAS MADE AWARE W/ ORER, NOTED AND ACKNOWLEDGED.
--- NOTE | 2017-08-13 12:39 | NUR ---
MS RN NOTE: CALLED AND SPOKE WITH AZAEL CORRALES FROM [facility] AND GAVE HER REPORT RE: THE PATIENT'S TRANSFER TO THEIR FACILITY. EMPHASIZED TO HER THAT PER GOLF TEACHER, HE WANTED THE AMIODARONE LEVEL TO BE CHECKED WITHIN A WEEK. SHE WAS ALSO AWARE ABOUT FOLLOWING UP WITH THE RECEIVING MD IN THEIR FACILITY THAT THE PATIENT HAS A CT ABDOMEN/PELVIS WITH CONTRAST TO BE DONE AN OUTPATIENT. NEW PRESCRIPTIONS (AMIODARONE, XARELTO AND GLIPIZIDE) WERE RELAYED TO HER. DAUGHTER PRESENT AT THE BEDSIDE AT THIS TIME. SAVANNA ADDISON WAS AWARE THAT EXPECTED TIME OF ARRIVAL IS 1:30 PM. EXIT CARE WAS DONE. PATIENT TEACHING WAS DONE WITH THE DAUGHTER AND PATIENT. WELL UNDERSTOOD AND ALL PAPERWORK WILL BE RELEASE TO THEM UPON DISCHARGE.
[2017-08-13 13:00] VITALS: BP 131/73
[2017-08-13] MEDS: CEFTRIAXONE 1 G in IV NS 0.9% 50 ML IV SCH (13:00)
--- NOTE | 2017-08-13 14:15 | NUR ---
MS RN NOTE: PATIENT WAS PICKED UP BY 2 EMT OF [facility] AND WAS TRANSPORTED VIA GURNEY. PATIENT ON O2 4L/MIN VIA NC AND NO SHORTNESS OF BREATH NOTED. SATURATING 95%. DENIED ANY PAIN. EXIT CARE WAS PROVIDED. AAMIRNURA WAS PRESENT AT THE BEDSIDE. ALL PAPERWORK WAS SIGNED AND DISCUSSED WITH THE DAUGHTER AND PATIENT. NO QUESTIONS WERE ASKED. CD FOR THE RENAL ULTRASOUND WAS TAKEN BY THE DAUGHTER, AAMIR. ALL BELONGINGS WERE BROUGHT BY THE PATIENT UPON DISCHARGE. PAPERWORK WAS SIGNED BY HER DAUGHTER, AAMIR. (R) UA MIDLINE WAS REMOVED AND COVERED WITH DRY DRESSING AND SECURED WITH TAPE. PRESSURE WAS APPLIED.
[2017-08-14 10:17] LABS: *SPE A/G RATIO 0.9 (0.7-1.7); *SPE ALPHA-1-GLOBULIN 0.3 g/dL (0.0-0.4); *SPE ALPHA-2-GLOBULIN 0.8 g/dL (0.4-1.0); *SPE BETA GLOBULIN 1.3 g/dL (0.7-1.3); *SPE GLOBULIN, TOTAL 3.4 g/dL (2.2-3.9); *SPE M-SPIKE Not Observed g/dL (Not Observed); *SPEGAMMA GLOBULIN 0.9 g/dL (0.4-1.8)
[2017-08-21] MEDS ORDERED: FURO40TA5 PO (10:13)
[2017-08-21] MEDS ORDERED: PRED50TA PO (10:13)
== END 2017-08-13 14:15 | DRG 280 ==
LOC: ER 06:00 → TELE1 09:08 → MEDSG1 08-07 10:10 → TELE1 08-07 15:44 → MEDSG1 08-08 09:46
PROVIDERS: ADMIT Registered Nurse; ATTEND Registered Nurse
PROC: 05H533Z Insertion of Infusion Device into Right Subclavian Vein, Percutaneous Approach (ICD-10-PCS; principal; 2017-08-07)
PROC: B546ZZA Ultrasonography of Right Subclavian Vein, Guidance (ICD-10-PCS; 2017-08-07)
DX: I48.91 Unspecified atrial fibrillation (principal); I21.A1 Myocardial infarction type 2; I26.99 Other pulmonary embolism without acute cor pulmonale; N17.0 Acute kidney failure with tubular necrosis; E11.22 Type 2 diabetes mellitus with diabetic chronic kidney disease; E66.01 Morbid (severe) obesity due to excess calories; D68.59 Other primary thrombophilia; N39.0 Urinary tract infection, site not specified; E11.9 Type 2 diabetes mellitus without complications; B96.20 Unspecified Escherichia coli [E. coli] as the cause of diseases classified elsewhere; E78.5 Hyperlipidemia, unspecified; E86.0 Dehydration; G89.4 Chronic pain syndrome; N18.9 Chronic kidney disease, unspecified; G47.9 Sleep disorder, unspecified; F03.90 Unspecified dementia, unspecified severity, without behavioral disturbance, psychotic disturbance, mood disturbance, and anxiety; F32.9 Major depressive disorder, single episode, unspecified; Z68.37 Body mass index [BMI] 37.0-37.9, adult; D72.829 Elevated white blood cell count, unspecified; E55.9 Vitamin D deficiency, unspecified; M81.0 Age-related osteoporosis without current pathological fracture; T50.8X5A Adverse effect of diagnostic agents, initial encounter; Y92.89 Other specified places as the place of occurrence of the external cause; Z79.84 Long term (current) use of oral hypoglycemic drugs
CPT/HCPCS: 36415; 36569; 36600; 71045-TC; 76770-TC; 80048-TC; 80053-TC; 80061-TC; 81000-TC; 82306; 82784; 82803-TC; 83735-TC; 83880; 84100-TC; 84155; 84165; 84439-TC; 84443-TC; 84484-TC; 85025-TC; 85378-TC; 85730-TC; 86334; 87086-TC; 87186-TC; 93307-TC; 93970-TC; 93976-TC; 97116-TC; 97530-TC; A4216; A4606; J0696; J1650; J2270; J3490; J7030; J7040; Q9967; Z7610

== ENCOUNTER 2017-08-15 16:55 | Inpatient (IN) | payer MEDICARE ==
[2017-08-15] VITALS (7 sets, daily range): BP systolic 102–161; BP diastolic 56–83
[~2017-08-15] VITALS: Ht 154.9 cm; Wt 94.0 kg
[~2017-08-15 16:55] MED LIST: AMIO400T5 PO; ASPI-1152 PO; CITA40TA11 PO; FENO160T PO; GLIP5TAB13 PO; HYDR-548 PO; Rivaroxaban PO; SIMV20TA6 PO; TRAZ-182 PO
--- NOTE | 2017-08-15 16:55 | NUR ---
bibra 84 c/o chest pain x 3 days, spo2=91% on 4L PRODUCTION ENGINEER TRACK BS=54MG/DL . PLACED ON MONITOR AWAITING MD ORDER
[2017-08-15] MEDS ORDERED: DEXTROSE 50%-WATER 50 ML DISP.SYRIN ONE ×3 (17:13→19:22)
--- NOTE | 2017-08-15 17:15 | NUR ---
MD PENA AT BEDSIDE
[2017-08-15 17:25] LABS: BASOPHILS # (AUTO) 0.3 /CMM (0.0-0.2); BASOPHILS % (AUTO) 1.5 % (0.0-2.0); HEMATOCRIT 37 % (33-45); HEMOGLOBIN 12.4 g/dL (11.5-14.8); LYMPHOCYTES # (AUTO) 1.7 /CMM (0.8-4.8); LYMPHOCYTES % (AUTO) 9.8 % (20.0-44.0); MEAN CORPUSCULAR HGB CONC 34 g/dl (31.0-36.0); MEAN CORPUSCULAR VOLUME 87 fL (82-100); MONOCYTES # (AUTO) 2.6 /CMM (0.1-1.30); MONOCYTES % (AUTO) 14.7 % (2.0-12.0); NEUTROPHILS # (AUTO) 12.9 /CMM (1.8-8.9); PLATELET COUNT (AUTO) 473 /CMM (150-450); RDW COEFFICIENT OF VARIATION 14.2 (11.5-15.0); RED BLOOD CELL COUNT(AUTO) 4.26 MIL/uL (4.0-5.2); WHITE BLOOD COUNT (AUTO) 17.7 K/uL (4.3-11.0)
[2017-08-15] MEDS ORDERED: ONDANSETRON HCL/PF 4 MG/2 ML VIAL ONE (17:26)
[2017-08-15] MEDS ORDERED: MORPHINE SULFATE INJ 4 MG/ML DISP.SYRIN ONE ×2 (17:27→18:20)
[2017-08-15] MEDS ORDERED: MORPHINE SULFATE INJ 2 MG/ML DISP.SYRIN IV ONE ×2 (17:30→18:30)
[2017-08-15] MEDS ORDERED: ONDANSETRON HCL/PF - ER 4 MG/2 ML VIAL IV ONE (17:30)
[2017-08-15] MEDS ORDERED: DEXTROSE 50%-WATER 50 ML DISP.SYRIN IVP ONE ×2 (17:30→20:00)
[2017-08-15] MEDS ORDERED: NA P133E RC (17:37)
[2017-08-15] MEDS ORDERED: DOCU-141 PO (17:37)
[2017-08-15] MEDS ORDERED: MAGN400O6 PO (17:37)
[2017-08-15] MEDS ORDERED: BISA10SU8 RC (17:37)
[2017-08-15] MEDS ORDERED: RIVA10TA PO (17:37)
[2017-08-15] MEDS ORDERED: AMIO200T4 PO (17:37)
[2017-08-15] MEDS ORDERED: ACET-868 PO (17:37)
[2017-08-15] MEDS ORDERED: ASPI-1169 PO (17:37)
[2017-08-15] MEDS ORDERED: GLIP5TAB13 PO (17:37)
[2017-08-15] MEDS ORDERED: BLOO-668 IN (17:37)
[2017-08-15 17:39] LABS: INR 0.99 (0.85-1.15)
[2017-08-15 17:44] LABS: TROPONIN I 0.025 ng/mL (0.00-0.056)
[2017-08-15 17:50] LABS: B-TYPE NATRIURETIC PEPTIDE 5562 PG/ML (0-125); CALCIUM, SERUM 8.7 mg/dL (8.5-10.1); CARBON DIOXIDE 24 mmol/L (21-32); CHLORIDE 105 mmol/L (98-107); CREATININE 1.7 mg/dL (0.6-1.3); POTASSIUM 4.1 mmol/L (3.5-5.1); SODIUM SERUM 139 mmol/L (136-145); UREA NITROGEN, BLOOD 26 mg/dL (7-18)
[2017-08-15 17:53] LABS: GLUCOSE 47 mg/dL (74-106)
--- NOTE | 2017-08-15 18:16 | NUR ---
PT NOTED WITH LABORED BREATHING DESATED TO 67% ON O2 VIA NC. MD AWARE, PLACED ON NONREBREATHER MASK.
--- NOTE | 2017-08-15 18:19 | NUR ---
RT ARRIVED WITH BIPAP. DR. PENA IS AT THE BEDSIDE
--- NOTE | 2017-08-15 18:25 | NUR ---
CALLED NURSING SUP. FOR ICU BED
--- NOTE | 2017-08-15 18:27 | NUR ---
BIPAP 15/5 FIO2 80%
--- NOTE | 2017-08-15 18:38 | NUR ---
RT NOTE PT PLACED ON BIPAP PER MD ORDER. SETTINGS PRESCRIBED 04/08 14 80%. ALARM SET PER PROTOCOL AND AUDIBLE. BIPAP PLUGGED IN TO RED OUTLET. AMBU BAG AT BED SIDE. NO DISTRESS NOTED. PT AWAKE AND ALERT. FAMILY AT BED SIDE. Addendum: 08/15/17 at 1840 by RASTA WARE RT Amended: Links added.
[2017-08-15] MEDS ORDERED: LORAZEPAM INJ 2 MG/ML VIAL ONE (18:44)
--- NOTE | 2017-08-15 18:59 | NUR ---
CALLED RT FOR ABG
[2017-08-15] MEDS ORDERED: FUROSEMIDE 40 MG/4 ML VIAL IV ONE (19:00)
[2017-08-15] MEDS ORDERED: LORAZEPAM INJ 2 MG/ML VIAL IV ONE (19:00)
[2017-08-15] MEDS ORDERED: FUROSEMIDE 40 MG/4 ML VIAL ONE (19:04)
--- NOTE | 2017-08-15 19:10 | NUR ---
DR.RUTHERFORD CONRAD COMMERCIAL REAL ESTATE AGENT
[2017-08-15 19:15] LABS: ABG BASE EXCESS -0.8 mmol/L; ABG OXYGEN SATURATION 98.5 % (92.0-98.5); ABG PCO2 48.5 mmHg (35.0-45.0); ABG PH 7.338 (7.350-7.450); ABG PO2 180.8 mmHg (75.0-100.0); AaDO2 338.7 mmHg; COHb 0.3 % (0.5-1.5); MetHb 0.6 % (0.0-1.5); O2Hb 97.6 % (94.0-97.0); SITE, ABG Right Radial; VENT MODE, BG ST 15/5
--- NOTE | 2017-08-15 19:20 | NUR ---
REPORT GIVEN TO SHAVON FOR DAMON
--- NOTE | 2017-08-15 19:30 | NUR ---
BLOOD GLUCOSE 54, D50 GIVEN
[2017-08-15] MEDS ORDERED: MAG HYDROX/AL HYDROX/SIMETH 30 ML UDC PO PRN ×2 (20:00→22:00)
[2017-08-15] MEDS ORDERED: BISACODYL SUPP (10 MG) 10 MG/SUPP.RECT SUPP.RECT RC PRN (20:00)
[2017-08-15] MEDS ORDERED: MORPHINE SULFATE INJ 2 MG/ML DISP.SYRIN IV PRN ×3 (20:00→22:00)
[2017-08-15] MEDS ORDERED: ONDANSETRON HCL/PF 4 MG/2 ML VIAL IVP PRN ×2 (20:00→22:00)
[2017-08-15] MEDS ORDERED: MAGNESIUM HYDROXIDE 30 ML UDC PO PRN ×3 (20:00→22:00)
[2017-08-15] MEDS ORDERED: ZOLPIDEM TARTRATE 5 MG TABLET PO PRN (20:00)
[2017-08-15] MEDS ORDERED: HYDROCODONE/APAP 5/325MG 1 EACH TABLET PO PRN ×2 (20:00→22:00)
[2017-08-15] MEDS ORDERED: Z GUARD REMEDY 2 OZ OINT TP PRN ×2 (20:00→22:00)
[2017-08-15] MEDS ORDERED: NA PHOS,M-B/NA PHOS,DI-BA 1 EA ENEMA RC PRN (20:00)
[2017-08-15] MEDS ORDERED: ACETAMINOPHEN 325 MG TABLET PO PRN ×2 (20:00→22:00)
--- NOTE | 2017-08-15 20:00 | NUR ---
PROJECT MANAGER INTERIOR DESIGN. ADMISSION, PT IS BEING ADMITTED IN THE ICU ROOM 254 WITH BIPAP. PT AWAKE, ALERT, FOLLOW COMMANDS. BIPAP ON SETTINGS 15/5. FIO2 80%, RATE IS 12. SAT 99%. IV RT WRIST 20G. SALINE LOCK.FC PATENT URINE DRAINING. NPO. HOB ELEVATED. SERVICE UNIT OPERATOR OIL WELL SHOWING 1ST DEGREE HEART BLOCK, WITH NSR. SACRAL REDNESS NOTED, RT HAND BRUISE, RT LEG OLD SCAB,ABDOMEN BRUISE, PICTURE TAKEN, PLACED IN THE CHART, WILL CONTINUE TO MONITOR.
--- NOTE | 2017-08-15 20:08 | NUR ---
PATIENT TRANSPORTED TO ICU BED BY RT AND EMT WITHOUT INCIDENT
--- NOTE | 2017-08-15 20:40 | NUR ---
PUBLIC HEALTH OFFICER. FAMILY AT BED SIDE. . THEY WANT TO TALK TO MD BERTHA PRICE REGARDING PLAN OF CARE, SON DECIDED TO COMFORT MEASURE.
--- NOTE | 2017-08-15 21:15 | NUR ---
MOVIE THEATER MANAGER BLOOD SUGAR 112,
--- NOTE | 2017-08-15 21:22 | NUR ---
QUAIL FARMER. DR ESPINO AT BED SIDE SPOKE WITH FAMILY, PT IS NOW COMFORT MEASURE. BIPAP OFF. OXYGEN 2L NASAL CANNULA. SAT 98%,
--- NOTE | 2017-08-15 21:30 | NUR ---
FINANCIAL LEGAL ASSISTANT, FAMILY AGAIN DECIDED PT CODE STATUS, SON SPOKE WITH DR ESPINO , NOW PT IS DNR/DNI. SON STATED NO BIPAP. EVEN IF PT HAS DISTRESS, JUST NASAL CANNULA, SIMPLE MASK,OR NONREBREATHER,
[2017-08-15] MEDS ORDERED: SIMVASTATIN 20 MG TABLET PO SCH (22:00)
[2017-08-15] MEDS ORDERED: ASPIRIN 81 MG TAB.CHEW PO SCH (22:00)
--- NOTE | 2017-08-15 22:51 | NUR ---
CHUCKING AND SAWING MACHINE OPERATOR. BLOOD SUGAR 39. CALLED LAB FOR BLOOD GLUCOSE TEST.STAT ORDER.
[2017-08-15] MEDS: BLOOD SUGAR DIAGNOSTIC 1 EACH STRIP VI SCH (22:53)
--- NOTE | 2017-08-15 22:53 | NUR ---
NURSING INFORMATION SYSTEMS COORDINATOR. D50% IV GIVEN PER ORDERED,
[2017-08-15] MEDS: DEXTROSE 50%-WATER 50 ML DISP.SYRIN IV PRN (22:54)
[2017-08-16] VITALS: BP_SYST 122; BP_SYST 132; BP_DIAS 62; BP_DIAS 64
[2017-08-16] MEDS: ALBUTEROL FS 2.5 MG/0.5 ML VIAL.NEB NEB PRN
--- NOTE | 2017-08-16 00:30 | NUR ---
BARREL ENDSHAKE ADJUSTER. TRANSFER THE PT TO TELE ROOM 105, REPORT GIVEN TO JEM. CORRALES, PT IS DNR/DNI.
--- NOTE | 2017-08-16 00:45 | NUR ---
RN INITIAL NOTES: RECEIVED REPORT FROM DEE RODRIGUEZ CLINICAL DATA MANAGEMENT DIRECTOR. PT WILL BE TRANSFER TO ROOM 105-TELEMETRY FOR CONTINUITY OF CARE. PT BROUGHT TO THE UNIT VIA BED. PT ON BIPAP IN ICU, BUT FAMILY DECIDED TO PLACED PT ON DNR/DNI, NO BIPAP, ONLY NASAL CANNULA, SIMPLE MASK OR NRB MASK TO HELP WITH OXYGENATION. PER REPORT PT TOLERATING 3L O2 VIA NC, WHEN VS WAS CHECK, PT SATTING 77% ON 3L VIA NC. LABORED BREATHING, NOTED TO BE WHEEZING, PT APPEARS PALE, WARM TO TOUCH. DENIES ANY PAIN OR DISCOMFORT. NOTED IV ACCES ON LEFT AC AND RIGHT WRIST BOTH INFILTRATED, STARTED NE IV ACCESS ON LEFT WRIST G 20, ON HL. PT HAS DE SANTIAGO CATHETER IN PLACED DRAINING INTO YELLOW COLORED URINE. PLACED PT ON HIGH FOWLERS POSITION. BLE OFFLOADED. ON TELE MONITORING SINUS RHYTHM WITH 1ST DEGREE AVBLOCK HR 70. SAFETY PRECAUTIONS FOR FALL INITIATED, CALL LIGHT IN REACH, WILL CONTINUE MONITORING PT.
--- NOTE | 2017-08-16 00:50 | NUR ---
RN NOTES: SWITCH TO SIMPLE MASK, HOWEVER PT ONLY SPO2 ON 80'S. DECIDED TO SWITCH TO NON REBREATHER MASK, 15L SPO2 REMAINS STABLE AT 95%. LANDSCAPER HELPER AWARE. PT IS A/O X1-2, CALM AND COOPERATIVE. PER REPORT PT BLOOD SUGAR IS 47, AND D50 WAS GIVEN IN ICU. ALSO PT RECEIVED BREATHING TREATMENT AND LASIX PRIOR TO TRANSFERRING TO THE UNIT.
--- NOTE | 2017-08-16 00:51 | NUR ---
RN NOTES: PLACED HUMIDIFIER, ALSO MEPILEX APPLIED TO PT'S CHEEK TO PREVENT ANY MARKINGS FROM STRING
[2017-08-16 01:00] VITALS: BP 124/60
--- NOTE | 2017-08-16 01:00 | NUR ---
RN NOTES: CONNECTED TO CONTINUOS PULSE OXIMETRY SPO2 95%
--- NOTE | 2017-08-16 02:00 | NUR ---
RN NOTES: PT SEEN SLEEPING, APPEARS COMFORTABLE, SPO2 96%, NO FACIAL GRIMACE NOTED
--- NOTE | 2017-08-16 03:30 | NUR ---
rn notes: given apple juice 240ml, consumed 100%
[2017-08-16 04:00] VITALS: BP 129/68
--- NOTE | 2017-08-16 04:49 | NUR ---
RN NOTES: TITRATE OXYGEN TO 6L SIMPLE MASK, SPO2 93%, PER RT RECOMMENDATION
[2017-08-16] MEDS: BLOOD SUGAR DIAGNOSTIC 1 EACH STRIP VI SCH ×5 (06:02→22:20)
[2017-08-16] MEDS: DEXTROSE 50%-WATER 50 ML DISP.SYRIN IV PRN ×2 (06:04→06:24)
--- NOTE | 2017-08-16 06:05 | NUR ---
bs 45: d50 given ivp, stat lab was called, to draw blood. chemical laboratory technician currently in the unit. blood draw done prior to administering the d50 injection thru iv, with kurt barboza. will recheck blood sugar after 15 mins
[2017-08-16 06:07] LABS: BASOPHILS % (AUTO) 0.2 % (0.0-2.0); EOSINOPHILS % (AUTO) 0.4 % (0.0-6.0); HEMATOCRIT 34 % (33-45); HEMOGLOBIN 11.1 g/dL (11.5-14.8); LYMPHOCYTES # (AUTO) 1.3 /CMM (0.8-4.8); LYMPHOCYTES % (AUTO) 7.5 % (20.0-44.0); MEAN CORPUSCULAR HGB CONC 33 g/dl (31.0-36.0); MEAN CORPUSCULAR VOLUME 89 fL (82-100); MONOCYTES # (AUTO) 2.7 /CMM (0.1-1.30); MONOCYTES % (AUTO) 15.2 % (2.0-12.0); NEUTROPHILS # (AUTO) 13.8 /CMM (1.8-8.9); NEUTROPHILS % (AUTO) 76.7 % (43.0-81.0); PLATELET COUNT (AUTO) 411 /CMM (150-450); RED BLOOD CELL COUNT(AUTO) 3.81 MIL/uL (4.0-5.2)
--- NOTE | 2017-08-16 06:20 | NUR ---
bs recheck after 15mins: bs taken at 0605 was 45, stat blood draw done, [id number] ivp, rechecked bs after 15mins, now bs is 177, no insulin coverage given as pt's blood sugar trend always drop to low 50's. md aware, afternoon babysitter aware, will continue monitoring pt. pt been awake, alert to self,
[2017-08-16] MEDS: INSULIN REGULAR, HUMAN 100 UNIT/ML 3 ML VIAL SQ PRN (06:24)
[2017-08-16 06:34] LABS: CALCIUM, SERUM 8.8 mg/dL (8.5-10.1); CARBON DIOXIDE 27 mmol/L (21-32); CHLORIDE 106 mmol/L (98-107); MAGNESIUM 2.2 mg/dL (1.8-2.4); POTASSIUM 4.4 mmol/L (3.5-5.1); SODIUM SERUM 141 mmol/L (136-145); UREA NITROGEN, BLOOD 27 mg/dL (7-18)
--- NOTE | 2017-08-16 06:35 | NUR ---
rn notes: contacted lab because rn noted glucose lab order appears on the system to be cancelled status, oplaced a new order again, called lab, stated they will take a look at it.
--- NOTE | 2017-08-16 06:51 | NUR ---
RN CLOSING NOTES: PT IN BED, AWAKE, REMAINS A/O X1 TO SELF ONLY, ON SIMPLE MASK AT 6L CONNECTED TO CONTINUOUS PULSE OXIMETRY SPO2 93% . REMAINS ON SINUS RHYTHM WITH 1ST DEGREE AV BLOCK HR 68. DE SANTIAGO CATHETER REMAINS IN PLACED, BAG EMPTIED. VS REMAINS STABLE, RESPIRATION REMAINS SHALLOW AND TACHYPNEIC, MD AWARE. SAFETY PRECAUTIONS FOR FALL REMAINS ENGAGED, CALL LIGHT IN REACH, WILL ENDORSE TO DAY RN FOR DAMON.
[2017-08-16 06:52] LABS: GLUCOSE 48 mg/dL (74-106)
--- NOTE | 2017-08-16 06:53 | NUR ---
RN NOTES: RECEIVED CALL FROM LAB, STATED THEY DRAW BLOOD EARLER AROUND 0515, AND THE RESULT OF GLUCOSE IS 48. INFORMED LAB THAT ANOTHER LAB DRAW WAS PERFORMED DUE TO BS 45 AROUND 0605AM, WHEN THE COMPUTATIONAL MATHEMATICIAN IS CURRENTLY IN THE UNIT, MEANING THERE IS ANOTHER BLOOD SPECIMEN TO RUN TEST FOR GLUCOSE, TECH STATED THEY WILL RUN THE TEST AND CALL FOR RESULT.
--- NOTE | 2017-08-16 07:15 | NUR ---
CRITICAL LAB RESULT GLUCOSE 43: BLOOD GLUCOSE RESULT IS 43, REPORTED BY ZAINAB HARRIS FROM MD OG CONTACTED, AWARE, INFORMED THAT D50 WAS GIVEN, NO FURTHER ORDERS RECEIVED.
[2017-08-16 07:30] LABS: NEUTROPHILS % (MANUAL) 84 (42-76)
[2017-08-16 07:31] LABS: LYMPHOCYTES % (MANUAL) 4 % (16-48); MONOCYTES % (MANUAL) 12 % (0-11.0)
--- NOTE | 2017-08-16 07:45 | NUR ---
RN NOTE RECEIVED PATIENT ALERT AND ORIENTED X3 SHE IS ABLE TO MAKE THINGS KNOWN AND VERBALIZED NEEDS AND MAKE THINGS KNOWN. PATIENT CURRENTLY ON SIMPLE MASK AT 6L O2 SATURATION LEVEL AT 91% AND HAS NASAL CANNULA AT BEDSIDE. LABORED BREATHING WITH MILD WHEEZING. PATIENT DENIES ANY PAIN OR DISCOMFORT AT THIS TIME. IV SITE INTACT AND PATENT. PATIENT F/C INTACT AND PATENT AND ADEQUATELY DRAINING. HOB ELEVATED FOR COMFORT. ON CARDIAC MONITORING SINUS RHYTHM WITH 1ST DEGREE AV BLOCK HR 71. SAFETY PRECAUTIONS DONE, BED LOW AND LOCKED POSITION, PLACED CALL LIGHT WITH IN REACH, WILL CONTINUE MONITORING
[2017-08-16 08:00] VITALS: BP 113/74
[2017-08-16] MEDS ORDERED: MORPHINE SULFATE INJ 4 MG/ML DISP.SYRIN IV PRN (08:30)
[2017-08-16] MEDS ORDERED: DOCUSATE SODIUM 100 MG CAPSULE PO SCH (09:00)
[2017-08-16] MEDS ORDERED: Medication Not On Formulary EA (Fenofibrate 160 MG) PO SCH (09:00)
[2017-08-16] MEDS ORDERED: FUROSEMIDE 40 MG/4 ML VIAL IV SCH ×2 (09:00)
[2017-08-16] MEDS ORDERED: CITALOPRAM HYDROBROMIDE 20 MG TABLET PO SCH (09:00)
[2017-08-16] MEDS ORDERED: AMIODARONE HCL 200 MG TABLET PO SCH (09:00)
[2017-08-16] MEDS: LORAZEPAM INJ 2 MG/ML VIAL IV PRN ×3 (09:48→20:38)
[2017-08-16 11:09] LABS: TROPONIN I 0.018 ng/mL (0.00-0.056)
[2017-08-16 11:14] LABS: THYROID STIMULATING HORMONE 2.767 uIU/mL (0.358-3.74)
[2017-08-16] MEDS: FUROSEMIDE 100 MG/10 ML VIAL IV SCH ×3 (11:14→19:00)
[2017-08-16] MEDS: IPRATROPIUM NEB FS 0.5 MG/2.5 ML AMPUL.NEB NEB SCH ×3 (11:14→23:48)
[2017-08-16] MEDS: ALBUTEROL FS 2.5 MG/3 ML VIAL.NEB NEB SCH ×3 (11:14→23:48)
[2017-08-16 12:00] VITALS: BP 113/61
[2017-08-16] MEDS ORDERED: LEVOFLOXACIN 500 MG /D5W 100ML 100 ML IV ONE (12:00)
[2017-08-16] MEDS: methylPREDNISolone SOD SUCC 125 MG/2ML VIAL IV SCH ×2 (12:08→20:39)
[2017-08-16] MEDS: MORPHINE SULFATE INJ 2 MG/ML DISP.SYRIN IV PRN ×2 (14:26→20:40)
[2017-08-16 16:00] VITALS: BP 116/59
[2017-08-16] MEDS: ENOXAPARIN SODIUM 100 MG/ML DISP.SYRIN SQ SCH (16:47)
[2017-08-16] MEDS ORDERED: RIVAROXABAN 10 MG TABLET PO SCH ×2 (17:00)
[2017-08-16] MEDS ORDERED: IV 1/2NS 1000 ML 1,000 ML IV PRN (18:30)
--- NOTE | 2017-08-16 18:55 | NUR ---
RN NOTE DR DAVIS CALLED WITH NEW ORDERS FOR PATIENT DC LASIX, MUCOMYST 600MG PO 4 DOSES, AND OK FOR CT SCAN WITH CONTRAST OF THE CHEST AND ABDOMEN LONG ITS OK WITH DR SUMMERS. DR SUMMERS WAS MADE AWARE. ORDERS WERE PLACED AND CARRIED OUT. FAMILY MADE AWARE. WILL ENDORSE TO NEXT SHIFT TO FOLLOW UP WITH CT GALLEGOS CONSENT.
[2017-08-16] MEDS: ACETYLCYSTEINE 20% ORAL SOLN 6,000 MG/30 ML VIAL PO SCH (21:00)
[2017-08-16] MEDS: *INSULIN REGULAR(HUMULIN R)HUM 100 UNIT/ML VIAL SQ PRN (22:22)
[2017-08-17 04:00] VITALS: BP 116/60
[2017-08-17] MEDS: methylPREDNISolone SOD SUCC 125 MG/2ML VIAL IV SCH ×3 (04:42→21:24)
[2017-08-17 06:30] LABS: BASOPHILS % (AUTO) 0.1 % (0.0-2.0); HEMATOCRIT 33 % (33-45); LYMPHOCYTES # (AUTO) 0.5 /CMM (0.8-4.8); LYMPHOCYTES % (AUTO) 3.1 % (20.0-44.0); MEAN CORPUSCULAR HGB CONC 34 g/dl (31.0-36.0); MEAN CORPUSCULAR VOLUME 88 fL (82-100); MONOCYTES # (AUTO) 0.7 /CMM (0.1-1.30); MONOCYTES % (AUTO) 4.8 % (2.0-12.0); NEUTROPHILS # (AUTO) 13.3 /CMM (1.8-8.9); PLATELET COUNT (AUTO) 390 /CMM (150-450); WHITE BLOOD COUNT (AUTO) 14.5 K/uL (4.3-11.0)
[2017-08-17 07:00] LABS: TROPONIN I < 0.017 ng/mL (0.00-0.056)
[2017-08-17 07:06] LABS: ALANINE AMINOTRANSFERASE 13 U/L (12-78); ALBUMIN 2.5 g/dL (3.4-5.0); ALKALINE PHOSPHATASE 24 U/L (46-116); ASPARTATE AMINOTRANSFERASE 20 U/L (15-37); BILIRUBIN,TOTAL 0.4 mg/dL (0.2-1.0); CALCIUM, SERUM 8.6 mg/dL (8.5-10.1); CARBON DIOXIDE 29 mmol/L (21-32); CHLORIDE 100 mmol/L (98-107); CREATININE 2.5 mg/dL (0.6-1.3); GLUCOSE 235 mg/dL (74-106); MAGNESIUM 2.4 mg/dL (1.8-2.4); PHOSPHORUS 5.7 mg/dL (2.5-4.9); POTASSIUM 4.5 mmol/L (3.5-5.1); SODIUM SERUM 138 mmol/L (136-145); TOTAL PROTEIN, SERUM 6.8 g/dL (6.4-8.2); UREA NITROGEN, BLOOD 40 mg/dL (7-18)
--- NOTE | 2017-08-17 07:15 | NUR ---
RN OPENING NOTE RECEIVED PATIENT ALERT AND ORIENTED X3 SHE IS ABLE TO MAKE THINGS KNOWN AND VERBALIZED NEEDS AND MAKE THINGS KNOWN. PATIENT CURRENTLY ON SIMPLE MASK AT 12L O2 SATURATION LEVEL AT 92% AND HAS NASAL CANNULA AT BEDSIDE. LABORED BREATHING WITH MILD WHEEZING. PATIENT DENIES ANY PAIN OR DISCOMFORT AT THIS TIME. IV SITE INTACT AND PATENT. PATIENT F/C . HOB ELEVATED FOR COMFORT. ON CARDIAC MONITORING SINUS RHYTHM WITH 1ST DEGREE AV BLOCK HR 69. SAFETY PRECAUTIONS DONE, BED LOW AND LOCKED POSITION, PLACED CALL LIGHT WITH IN REACH, WILL CONTINUE MONITOR
[2017-08-17] MEDS: BLOOD SUGAR DIAGNOSTIC 1 EACH STRIP VI SCH ×4 (07:41→21:28)
[2017-08-17 08:00] VITALS: BP 126/69
[2017-08-17] MEDS: INSULIN REGULAR, HUMAN 100 UNIT/ML 3 ML VIAL SQ PRN ×2 (08:02→19:28)
[2017-08-17] MEDS: IPRATROPIUM NEB FS 0.5 MG/2.5 ML AMPUL.NEB NEB SCH ×3 (08:07→23:30)
[2017-08-17] MEDS: ALBUTEROL FS 2.5 MG/3 ML VIAL.NEB NEB SCH ×3 (08:07→23:30)
[2017-08-17] MEDS: ENOXAPARIN SODIUM 100 MG/ML DISP.SYRIN SQ SCH (08:10)
[2017-08-17 09:45] LABS: ABG BASE EXCESS 3.8 mmol/L; ABG OXYGEN SATURATION 92.2 % (92.0-98.5); ABG PCO2 44.6 mmHg (35.0-45.0); ABG PH 7.426 (7.350-7.450); ABG PO2 64.8 mmHg (75.0-100.0); AaDO2 350.2 mmHg; COHb 0.3 % (0.5-1.5); MetHb 0.8 % (0.0-1.5); O2Hb 91.2 % (94.0-97.0); SITE, ABG Right Radial; VENT MODE, BG 12L SIMPLE MASK
--- NOTE | 2017-08-17 10:30 | NUR ---
COUGAR HUNTER NOTE SEEN BY WITH ORDER TO DO CT SCAN WITHOUT CONTRAST.VERIFIED WITH THAT PATIENT CREATININE IS HIGH ,ORDERED CT SCAN WITHOUT CONTRAST.PATIENT AND FAMILY MADE AWARE,RADIOLOGY AWARE.
[2017-08-17 12:00] VITALS: BP 119/70
[2017-08-17] MEDS: *INSULIN REGULAR(HUMULIN R)HUM 100 UNIT/ML VIAL SQ PRN ×2 (12:24→21:42)
[2017-08-17] MEDS: ACETYLCYSTEINE 20% ORAL SOLN 6,000 MG/30 ML VIAL PO SCH ×2 (14:06→21:25)
[2017-08-17 16:00] VITALS: BP 127/65
--- NOTE | 2017-08-17 18:00 | NUR ---
NM: LUNG VQ WAS COMPLETED. TECH:RB
--- NOTE | 2017-08-17 19:00 | NUR ---
HAND COMPOSITOR SHIFT END NOTE PATIENT ALERT AND ORIENTED X3 SHE IS ABLE TO MAKE THINGS KNOWN AND VERBALIZED NEEDS AND MAKE THINGS KNOWN. SEEN BY ORDERED DOPPLER ULTRASOUND. MADE AWARE ABOUT THE VQ SCAN RESULT.WILL FOLLOW UP WITH CT SCAN RESULT PATIENT CURRENTLY ON SIMPLE MASK AT 12L O2 SATURATION LEVEL AT 96% AND HAS NASAL CANNULA AT BEDSIDE. NON LABORED BREATHING WITH MILD WHEEZING. PATIENT DENIES ANY PAIN OR DISCOMFORT AT THIS TIME. IV SITE INTACT AND PATENT. PATIENT F/C . HOB ELEVATED FOR COMFORT. ON CARDIAC MONITORING SINUS RHYTHM WITH 1ST DEGREE AV BLOCK HR 72. SAFETY PRECAUTIONS DONE, BED LOW AND LOCKED POSITION, PLACED CALL LIGHT WITH IN REACH, WILL ENDORSE TO PM NURSE FOR DAMON.
[2017-08-17 20:00] VITALS: BP 116/55
--- NOTE | 2017-08-17 20:00 | NUR ---
RN INITIAL NOTE RECEIVED PATIENT ALERT AND ORIENTED X3 SHE IS ABLE TO MAKE THINGS KNOWN AND VERBALIZED NEEDS AND MAKE THINGS KNOWN. PATIENT CURRENTLY ON SIMPLE MASK AT 12L O2 SATURATION LEVEL AT 92%. LABORED BREATHING WITH MILD WHEEZING. PATIENT DENIES ANY PAIN OR DISCOMFORT AT THIS TIME. IV SITE INTACT AND PATENT. PATIENT F/C . HOB ELEVATED FOR COMFORT. ON CARDIAC MONITORING SINUS RHYTHM WITH 1ST DEGREE AV BLOCK HR 70. SAFETY PRECAUTIONS DONE, BED LOW AND LOCKED POSITION, PLACED CALL LIGHT WITH IN REACH, WILL CONTINUE MONITOR.
[2017-08-18] VITALS: BP 129/57
[2017-08-18 04:00] VITALS: BP 135/66
[2017-08-18] MEDS: methylPREDNISolone SOD SUCC 125 MG/2ML VIAL IV SCH ×3 (04:28→21:43)
--- NOTE | 2017-08-18 06:00 | NUR ---
RN CLOSING NOTES: PT IN BED, AWAKE, REMAINS A/O X1 TO SELF ONLY, ON SIMPLE MASK AT 12L CONNECTED TO CONTINUOUS PULSE OXIMETRY SPO2 93% . REMAINS ON SINUS RHYTHM WITH 1ST DEGREE AV BLOCK HR 68. DE SANTIAGO CATHETER REMAINS IN PLACED, BAG EMPTIED. VS REMAINS STABLE, RESPIRATION REMAINS SHALLOW AND TACHYPNEIC, MD AWARE. SAFETY PRECAUTIONS FOR FALL REMAINS ENGAGED, CALL LIGHT IN REACH, WILL ENDORSE TO DAY RN FOR DAMON.
[2017-08-18 06:40] LABS: BASOPHILS % (AUTO) 0.1 % (0.0-2.0); HEMATOCRIT 32 % (33-45); HEMOGLOBIN 10.7 g/dL (11.5-14.8); LYMPHOCYTES # (AUTO) 0.5 /CMM (0.8-4.8); LYMPHOCYTES % (AUTO) 3.2 % (20.0-44.0); MEAN CORPUSCULAR HGB CONC 34 g/dl (31.0-36.0); MEAN CORPUSCULAR VOLUME 89 fL (82-100); MONOCYTES # (AUTO) 0.4 /CMM (0.1-1.30); MONOCYTES % (AUTO) 2.2 % (2.0-12.0); NEUTROPHILS % (AUTO) 94.5 % (43.0-81.0); PLATELET COUNT (AUTO) 411 /CMM (150-450); RDW COEFFICIENT OF VARIATION 14.3 (11.5-15.0); WHITE BLOOD COUNT (AUTO) 15.9 K/uL (4.3-11.0)
[2017-08-18 06:42] LABS: CALCIUM, SERUM 8.4 mg/dL (8.5-10.1); CARBON DIOXIDE 29 mmol/L (21-32); CHLORIDE 101 mmol/L (98-107); CREATININE 2.1 mg/dL (0.6-1.3); GLUCOSE 149 mg/dL (74-106); MAGNESIUM 2.6 mg/dL (1.8-2.4); PHOSPHORUS 3.8 mg/dL (2.5-4.9); POTASSIUM 4.7 mmol/L (3.5-5.1); SODIUM SERUM 137 mmol/L (136-145); UREA NITROGEN, BLOOD 58 mg/dL (7-18)
[2017-08-18] MEDS: IPRATROPIUM NEB FS 0.5 MG/2.5 ML AMPUL.NEB NEB SCH ×3 (07:31→23:34)
[2017-08-18] MEDS: ALBUTEROL FS 2.5 MG/3 ML VIAL.NEB NEB SCH ×3 (07:31→23:34)
--- NOTE | 2017-08-18 07:35 | NUR ---
RN NOTE RECEIVED PATIENT ALERT AND ORIENTED X3 SHE IS ABLE TO MAKE THINGS KNOWN AND VERBALIZED NEEDS AND MAKE THINGS KNOWN. PATIENT CURRENTLY ON SIMPLE MASK AT 6L O2 SATURATION LEVEL AT 93% AND HAS NASAL CANNULA AT BEDSIDE. BREATHING EVEN UNLABORED WITH NO DISTRESS NOTED. PATIENT DENIES ANY PAIN OR DISCOMFORT AT THIS TIME. IV SITE INTACT AND PATENT. PATIENT F/C INTACT AND PATENT AND ADEQUATELY DRAINING. HOB ELEVATED FOR COMFORT. ON CARDIAC MONITORING SINUS RHYTHM WITH 1ST DEGREE AV BLOCK HR 72. SAFETY PRECAUTIONS DONE, BED LOW AND LOCKED POSITION, PLACED CALL LIGHT WITH IN REACH, WILL CONTINUE MONITOR
[2017-08-18] MEDS: BLOOD SUGAR DIAGNOSTIC 1 EACH STRIP VI SCH ×4 (07:48→21:50)
[2017-08-18] MEDS: INSULIN REGULAR, HUMAN 100 UNIT/ML 3 ML VIAL SQ PRN ×4 (07:49→21:43)
[2017-08-18 08:00] VITALS: BP 125/82
[2017-08-18] MEDS: ACETYLCYSTEINE 20% ORAL SOLN 6,000 MG/30 ML VIAL PO SCH (08:25)
[2017-08-18] MEDS ORDERED: ENOXAPARIN SODIUM 100 MG/ML DISP.SYRIN SQ SCH (09:00)
[2017-08-18] MEDS: LEVOFLOXACIN 500 MG /D5W 100ML 500 MG in PREMIX 1 EA IV SCH (15:39)
[2017-08-18 16:00] VITALS: BP 124/52
[2017-08-18] MEDS: RIVAROXABAN 15 MG TABLET PO SCH (16:55)
--- NOTE | 2017-08-18 18:47 | NUR ---
RN NOTE PATIENT REMAINED STABLE THROUGHOUT SHIFT. NO ACUTE CHANGES OR DISTRESS NOTED. WILL ENDORSE TO NEXT SHIFT TO CONTINUE CONTINUITY OF CARE.
--- NOTE | 2017-08-18 19:30 | NUR ---
MS/RN NOTES: RECEIVED PT. IN BED W/ HOB ELEVATED. W/ O2 @ 5LPM VIA N/C SAT. 93%. DENIES ANY C/O SOB OR CHEST PAIN AT PRESENT. W/ SL ON RIGHT HAND G 22 SL PATENT AND INTACT W/ NO S/S OF INFECTION/INFILTRATION NOTED. W/ F/C IN PLACE PATENT AND INTACT DRAINING VIA GRAVITY. ABLE TO MAKE NEEDS KNOWN. A/O X 2-3. CALL LIGHT W/ REACH. WILL CONTINUE TO MONITOR.
[2017-08-18 20:00] VITALS: BP 135/63
[2017-08-18] MEDS ORDERED: ZOLPIDEM TARTRATE 5 MG TABLET PO PRN (23:30)
[2017-08-19 04:00] VITALS: BP_SYST 146; BP_SYST 158; BP_DIAS 79
[2017-08-19] MEDS: methylPREDNISolone SOD SUCC 125 MG/2ML VIAL IV SCH ×2 (05:43→12:30)
--- NOTE | 2017-08-19 07:30 | NUR ---
RN/MS NOTES: NO ACUTE CHANGES NOTED DURING THIS SHIFT. REPORT GIVEN TO AM NURSE FOR DAMON.
--- NOTE | 2017-08-19 07:39 | NUR ---
MS RN OPENING NOTES RECEIVED PT FROM NIGHTSHIFT NURSE IN STABLE CONDITION. PT IS A/O X2-3. NO SOB OR SIGNS OF DISTRESS NOTED. BREATHING IS EVEN AND UNLABORED. PT IS ON 5L VIA NC AND SATING WELL @94%. DE SANTIAGO CATHETER NOTED TO BE PATENT AND INTACT AND DRAINING TO GRAVITY. IV TO LEFT FA NOTED TO PATENT AND INTACT. NO REDNESS OR SIGNS OF INFILTRATION NOTED. BED IN LO LOCKED POSITION, SIDE RAILS UP X3, CALL LIGHT WITHIN REACH. WILL CONTINUE TO MONITOR
[2017-08-19] MEDS: IPRATROPIUM NEB FS 0.5 MG/2.5 ML AMPUL.NEB NEB SCH ×3 (07:53→23:19)
[2017-08-19] MEDS: ALBUTEROL FS 2.5 MG/3 ML VIAL.NEB NEB SCH ×3 (07:53→23:19)
[2017-08-19 08:00] VITALS: BP 143/73
[2017-08-19] MEDS: BLOOD SUGAR DIAGNOSTIC 1 EACH STRIP VI SCH ×4 (09:08→21:19)
[2017-08-19] MEDS: INSULIN REGULAR, HUMAN 100 UNIT/ML 3 ML VIAL SQ PRN ×4 (09:15→21:10)
[2017-08-19 10:25] LABS: BASOPHILS % (AUTO) 0.1 % (0.0-2.0); HEMATOCRIT 34 % (33-45); HEMOGLOBIN 11.3 g/dL (11.5-14.8); LYMPHOCYTES # (AUTO) 0.2 /CMM (0.8-4.8); LYMPHOCYTES % (AUTO) 1.5 % (20.0-44.0); MEAN CORPUSCULAR HGB CONC 34 g/dl (31.0-36.0); MEAN CORPUSCULAR VOLUME 89 fL (82-100); MONOCYTES # (AUTO) 0.3 /CMM (0.1-1.30); MONOCYTES % (AUTO) 1.9 % (2.0-12.0); NEUTROPHILS # (AUTO) 13.2 /CMM (1.8-8.9); NEUTROPHILS % (AUTO) 96.5 % (43.0-81.0); PLATELET COUNT (AUTO) 473 /CMM (150-450); RDW COEFFICIENT OF VARIATION 13.5 (11.5-15.0); RED BLOOD CELL COUNT(AUTO) 3.82 MIL/uL (4.0-5.2); WHITE BLOOD COUNT (AUTO) 13.7 K/uL (4.3-11.0)
[2017-08-19 10:34] LABS: CALCIUM, SERUM 8.7 mg/dL (8.5-10.1); CARBON DIOXIDE 28 mmol/L (21-32); CHLORIDE 100 mmol/L (98-107); CREATININE 2.1 mg/dL (0.6-1.3); GLUCOSE 303 mg/dL (74-106); POTASSIUM 4.1 mmol/L (3.5-5.1); SODIUM SERUM 136 mmol/L (136-145); UREA NITROGEN, BLOOD 55 mg/dL (7-18)
[2017-08-19] MEDS: FUROSEMIDE 40 MG/4 ML VIAL IV SCH ×2 (12:30→21:08)
[2017-08-19 16:00] VITALS: BP_SYST 120; BP_SYST 129; BP_DIAS 56
[2017-08-19] MEDS: RIVAROXABAN 15 MG TABLET PO SCH (17:33)
[2017-08-19] MEDS: methylPREDNISolone SOD SUCC 40 MG/ML VIAL IV SCH (17:33)
--- NOTE | 2017-08-19 19:26 | NUR ---
MS RN CLOSING NOTES PT REMAINS STABLE. ALL NEEDS WERE MET DURING SHIFT AND ORDERS CARRIED OUT ACCORDINGLY. ALL DUE MEDS GIVEN. WOUND ANS SKIN CARE RENDERED. PT WAS REPOSITIONED AND TURNED Q2HRS PER PROTOCOL. VITALS STABLE THROUGHOUT SHIFT. SAFETY MEASURES REMAIN IN PLACE. WILL ENDORSE TO NIGHTSHIFT NURSE FOR DAMON
--- NOTE | 2017-08-19 19:30 | NUR ---
MS/RN NOTES: RECEIVED PT. IN BED W/ HOB ELEVATED. W/ O2 @ 5LPM VIA N/C SAT. 93%. DENIES ANY C/O SOB OR CHEST PAIN AT PRESENT. W/ SL ON LEFT FA G 22 SL PATENT AND INTACT W/ NO S/S OF INFECTION/INFILTRATION NOTED. W/ F/C IN PLACE PATENT AND INTACT DRAINING VIA GRAVITY. ABLE TO MAKE NEEDS KNOWN. A/O X 2-3. CALL LIGHT W/ REACH. WILL CONTINUE TO MONITOR.
[2017-08-19 20:00] VITALS: BP 122/55
[2017-08-19] MEDS: TRAZODONE 50 MG TABLET PO SCH (21:08)
[2017-08-20 04:00] VITALS: BP 110/54
[2017-08-20 06:28] LABS: HEMATOCRIT 33 % (33-45); LYMPHOCYTES # (AUTO) 0.3 /CMM (0.8-4.8); LYMPHOCYTES % (AUTO) 3.1 % (20.0-44.0); MEAN CORPUSCULAR HGB CONC 34 g/dl (31.0-36.0); MEAN CORPUSCULAR VOLUME 88 fL (82-100); MONOCYTES # (AUTO) 0.6 /CMM (0.1-1.30); MONOCYTES % (AUTO) 5.7 % (2.0-12.0); NEUTROPHILS # (AUTO) 9.6 /CMM (1.8-8.9); NEUTROPHILS % (AUTO) 91.2 % (43.0-81.0); PLATELET COUNT (AUTO) 421 /CMM (150-450); RDW COEFFICIENT OF VARIATION 14.5 (11.5-15.0); RED BLOOD CELL COUNT(AUTO) 3.75 MIL/uL (4.0-5.2); WHITE BLOOD COUNT (AUTO) 10.6 K/uL (4.3-11.0)
[2017-08-20 07:03] LABS: CARBON DIOXIDE 34 mmol/L (21-32); CHLORIDE 99 mmol/L (98-107); CREATININE 1.8 mg/dL (0.6-1.3); GLUCOSE 140 mg/dL (74-106); POTASSIUM 3.9 mmol/L (3.5-5.1); SODIUM SERUM 140 mmol/L (136-145); UREA NITROGEN, BLOOD 59 mg/dL (7-18)
--- NOTE | 2017-08-20 07:21 | NUR ---
RN/MS NOTES: NO ACUTE CHANGES NOTED DURING THIS SHIFT. REPORT GIVEN TO AM NURSE FOR DAMON.
--- NOTE | 2017-08-20 07:45 | NUR ---
MS RN OPENING NOTES RECEIVED PT SITTING UPRIGHT IN BED WITH HOB SLIGHTLY ELEVATED. AFEBRILE, AWAKE AND RESPONSIVE. RESPIRATIONS ARE EVEN AND UNLABORED, NOT IN ANY ACUTE DISTRESS NOTED. NO FACIAL GRIMACING MOANING NOTED AT THIS TIME. NO C/O SOB, N/V NOTED. IV ACCESS INTACT, NO INFILTRATION NOTED. DRESSING KEPT CLEAN AND DRY. SAFETY MEASURES ARE IN PLACE. CALL LIGHT IS LEFT WITHIN REACH.
[2017-08-20] MEDS: ALBUTEROL FS 2.5 MG/3 ML VIAL.NEB NEB SCH ×3 (07:47→23:23)
[2017-08-20] MEDS: IPRATROPIUM NEB FS 0.5 MG/2.5 ML AMPUL.NEB NEB SCH ×3 (07:47→23:23)
[2017-08-20 08:00] VITALS: BP 117/68
[2017-08-20] MEDS: FUROSEMIDE 40 MG/4 ML VIAL IV SCH (08:44)
[2017-08-20] MEDS: methylPREDNISolone SOD SUCC 40 MG/ML VIAL IV SCH (08:44)
[2017-08-20] MEDS: BLOOD SUGAR DIAGNOSTIC 1 EACH STRIP VI SCH ×4 (08:44→22:03)
[2017-08-20] MEDS: INSULIN REGULAR, HUMAN 100 UNIT/ML 3 ML VIAL SQ PRN ×3 (08:46→21:17)
[2017-08-20] MEDS: LEVOFLOXACIN 500 MG /D5W 100ML 500 MG in PREMIX 1 EA IV SCH (13:42)
[2017-08-20] MEDS: RIVAROXABAN 15 MG TABLET PO SCH (16:39)
--- NOTE | 2017-08-20 18:48 | NUR ---
MS RN CLOSING NOTES ALL DUE MEDS GIVEN, NEEDS MET AND RENDERED. AFEBRILE, RESPIRATIONS ARE EVEN AND UNLABORED, NOT IN ANY ACUTE DISTRESS NOTED. NO C/O CHEST PAIN, SOB AT THIS TIME. IV SITE INTACT, NO INFILTRATION NOTED. DRESSING KEPT CLEAN AND DRY. SAFETY MEASURES ARE IN PLACE. INSTRUCTED PT TO USE CALL LIGHT WHEN ASSISTANCE IS NEEDED. CALL LIGHT IS LEFT WITHIN REACH. WILL ENDORSE TO NEXT SHIFT FOR CONTINUITY OF CARE.
[2017-08-20] MEDS: ALBUTEROL FS 2.5 MG/0.5 ML VIAL.NEB NEB PRN (18:58)
--- NOTE | 2017-08-20 19:30 | NUR ---
MS/RN NOTES: RECEIVED PT. IN BED W/ HOB ELEVATED. W/ O2 @ 5LPM VIA N/C SAT. 92%. DENIES ANY C/O SOB OR CHEST PAIN AT PRESENT. W/ SL ON LEFT FA G 22 SL PATENT AND INTACT W/ NO S/S OF INFECTION/INFILTRATION NOTED. W/ F/C IN PLACE PATENT AND INTACT DRAINING VIA GRAVITY. ABLE TO MAKE NEEDS KNOWN. A/O X 2-3. CALL LIGHT W/ REACH. WILL CONTINUE TO MONITOR.
[2017-08-20 20:00] VITALS: BP 115/59
[2017-08-20] MEDS: TRAZODONE 50 MG TABLET PO SCH (21:15)
--- NOTE | 2017-08-21 02:30 | NUR ---
RN/MS NOTES: PT. TRANSFERRED TO MS ROOM @ 204 VIA BED IN STABLE CONDITION. REPORT GIVEN TO RN. RAMSEY FOR DAMON.
[2017-08-21 02:50] VITALS: BP 111/67
--- NOTE | 2017-08-21 02:50 | NUR ---
MS CUSTOMER RELATIONS CONSULTANT NOTE PT WAS TRANSFERRED FROM [place] VIA GURNEY. A/O X2-3, ABLE TO MAKE NEEDS KNOWN. NO SIGNS OF SOB OR DISTRESS, BREATHING EVENLY AND UNLABORED ON 5L NC WITH HOB ELEVATED. PT DENIES PAIN OR ANY DIFFICULTY BREATHING. IV ACCESS IS INTACT AND PATENT. DE SANTIAGO IS INTACT AND DRAINING. PT ORIENTED TO ROOM. BED IS IN LOW AND LOCKED POSITION, CALL LIGHT WITHIN REACH. WILL CONTINUE TO MONITOR PT.
--- NOTE | 2017-08-21 06:36 | NUR ---
MS RN CLOSING NOTE PT IS IN BED SLEEPING, EASILY AROUSED. NO SIGNS OF SOB OR DISTRESS BREATHING EVENLY AND UNLABORED. IV ACCESS IS INTACT AND PATENT. DE SANTIAGO IS INTACT AND DRAINING. NO ACUTE CHANGES. ALL NEEDS WERE ANTICIPATED AND MET. BED IS IN LOW AND LOCKED POSITION, CALL LIGHT WITHIN REACH. WILL ENDORSE TO DAYSHIFT.
[2017-08-21] MEDS: BLOOD SUGAR DIAGNOSTIC 1 EACH STRIP VI SCH ×3 (07:10→17:58)
--- NOTE | 2017-08-21 07:25 | NUR ---
RN NOTES PATIENT AWAKE AND RESPONSIVE. RECEIVED PT SITTING UPRIGHT IN BED WITH HOB SLIGHTLY ELEVATED. AFEBRILE, RESPIRATIONS ARE EVEN AND UNLABORED, NOT IN ANY ACUTE DISTRESS NOTED. NO FACIAL GRIMACING MOANING NOTED AT THIS TIME. NO C/O SOB, N/V NOTED. IV ACCESS INTACT, NO INFILTRATION NOTED. DRESSING KEPT CLEAN AND DRY. SAFETY MEASURES ARE IN PLACE. CALL LIGHT IS LEFT WITHIN REACH.
[2017-08-21] MEDS: IPRATROPIUM NEB FS 0.5 MG/2.5 ML AMPUL.NEB NEB SCH ×2 (07:29→16:16)
[2017-08-21] MEDS: ALBUTEROL FS 2.5 MG/3 ML VIAL.NEB NEB SCH ×2 (07:29→16:16)
[2017-08-21 08:00] VITALS: BP 132/71
[2017-08-21] MEDS ORDERED: methylPREDNISolone SOD SUCC 40 MG/ML VIAL IV SCH (09:00)
[2017-08-21] MEDS ORDERED: FUROSEMIDE 40 MG TABLET PO SCH (09:00)
[2017-08-21] MEDS ORDERED: PRED50TA PO (10:13)
[2017-08-21] MEDS ORDERED: FURO40TA5 PO (10:13)
--- NOTE | 2017-08-21 11:00 | NUR ---
RN NOTES RECEIVED ORDER FROM DR. ESPINO TO DISCONTINUE DE SANTIAGO. DE SANTIAGO REMOVED, PATIENT TOLERATED PROCEDURE WELL, WILL MONITOR FOR VOIDING TRIAL.
[2017-08-21] MEDS: INSULIN REGULAR, HUMAN 100 UNIT/ML 3 ML VIAL SQ PRN ×2 (12:48→17:50)
--- NOTE | 2017-08-21 13:00 | NUR ---
RN NOTES PATIENT NOTED WITH WET DIAPER. VOID TRIAL SUCCESSFUL.
[2017-08-21] MEDS ORDERED: predniSONE 20 MG TABLET PO SCH (14:00)
[2017-08-21 16:00] VITALS: BP 101/60
--- NOTE | 2017-08-21 16:00 | NUR ---
RN NOTES REPORT GIVEN TO JASON CORRALES AT [facility].
[2017-08-21] MEDS: RIVAROXABAN 15 MG TABLET PO SCH (16:50)
--- NOTE | 2017-08-21 16:55 | NUR ---
RN NOTES PATIENT A/OX2-3, VERBALLY RESPONSIVE, ON O2 AT 4LPM VIA NC WITH SPO2 OF 94%, BREATHING EVEN AND UNLABORED, NO SOB NOTED. PATIENT UNABLE TO TOLERATE O2 AT 2LPM, O2 SAT DROPS TO 89%. PATIENT'S SON IS PRESENT IN THE ROOM. GAVE DISCHARGE INSTRUCTIONS AND VERBALIZED UNDERSTANDING, AND SIGNED DISCHARGE PAPERWORKS. SKIN ASSESSMENT COMPLETED, PHOTOS TAKEN AND PLACED IN CHART. SKIN CARE RENDERED, TURNED AND REPOSITIONED EVERY 2 HOURS,L OFFLOADED DEVON HEELS, NEEDS ATTENDED AND MET, CALL LIGHT WITHIN REACH, WAITING FOR AMBULANCE AT THIS TIME.
--- NOTE | 2017-08-21 18:50 | NUR ---
SECURITY GUARD SUPERVISOR AMBULANCE CAME, REPORT GIVEN TO SNF RN ANNETTE THIS AM. VITALS STABLE, PATIENT A/OX3, ATE DINNER, NO S/SX OF HYPOGLYCEMIA, SON AT BEDSIDE. NO DISTRESS NOTED. BELONGINGS RECONCILED, JUST A NIGHTGOWN. PIV REMOVED, APPLIED PRESSURE GAUZE AND TAPE. PATIENT TRANSFERRED TO [facility] AND LEFT THE FACILITY IN NO DISTRESS.
== END 2017-08-21 18:50 | DRG 280 ==
LOC: ER 16:57 → ICU 19:40 → TELE1 08-16 00:35 → MEDSG1 08-18 10:44 → MEDSG2 08-21 02:37
PROVIDERS: ADMIT Internal Medicine; ATTEND Internal Medicine
PROC: 5A09357 Assistance with Respiratory Ventilation, Less than 24 Consecutive Hours, Continuous Positive Airway Pressure (ICD-10-PCS; principal; 2017-08-15)
DX: I13.0 Hypertensive heart and chronic kidney disease with heart failure and stage 1 through stage 4 chronic kidney disease, or unspecified chronic kidney disease (principal); I21.A1 Myocardial infarction type 2; N17.0 Acute kidney failure with tubular necrosis; J96.21 Acute and chronic respiratory failure with hypoxia; G93.41 Metabolic encephalopathy; I48.0 Paroxysmal atrial fibrillation; E46 Unspecified protein-calorie malnutrition; E11.22 Type 2 diabetes mellitus with diabetic chronic kidney disease; E11.649 Type 2 diabetes mellitus with hypoglycemia without coma; I50.33 Acute on chronic diastolic (congestive) heart failure; E66.01 Morbid (severe) obesity due to excess calories; D72.829 Elevated white blood cell count, unspecified; E55.9 Vitamin D deficiency, unspecified; N18.9 Chronic kidney disease, unspecified; Z79.01 Long term (current) use of anticoagulants; Z86.711 Personal history of pulmonary embolism; G89.4 Chronic pain syndrome; E78.5 Hyperlipidemia, unspecified; G47.9 Sleep disorder, unspecified; F03.90 Unspecified dementia, unspecified severity, without behavioral disturbance, psychotic disturbance, mood disturbance, and anxiety; F32.9 Major depressive disorder, single episode, unspecified; Z68.39 Body mass index [BMI] 39.0-39.9, adult; Z66 Do not resuscitate; J45.909 Unspecified asthma, uncomplicated; Z96.649 Presence of unspecified artificial hip joint
CPT/HCPCS: 36415; 36600; 71045-TC; 71250-TC; 78582; 80048-TC; 80053-TC; 82306; 82803-TC; 82947-TC; 82962-TC; 83735-TC; 83880; 84100-TC; 84439-TC; 84443-TC; 84484-TC; 85025-TC; 85730-TC; 87081-TC; 93307-TC; 93970-TC; 94760-TC; 94799-TC; 97110-TC; 97112-TC; 99082-TC; A4216; A4606; A9540; A9567; J1650; J1815; J1940; J1956; J2060; J2270; J2405; J2920; J2930; J3490; J7050; Z7610